=== PATIENT | male | born 1965 | race Caucasian/White ===

== ENCOUNTER 2021-03-09 06:10 | Outpatient (REF) | payer OTHER, SELFPAY ==
[2021-03-09 11:27] LABS: MANUAL DIFF FLAG NO
[2021-03-09 11:33] LABS: Appearance Urine HAZY; Color Urine YELLOW; Glucose Urine UA NEG (NEG); Leukocyte Esterase Urine NEG (NEG); Nitrite Urine NEG (NEG); Specific Gravity - Urine 1.025 (1.005-1.025); Urine Blood NEG (NEG); Urine Ketones NEG (NEG); Urine Protein NEG (NEG-TRACE)
[2021-03-09 11:42] LABS: Basophils Absolute Auto 0.1 X10*3/uL (0.0-0.2); Basophils Percent Auto 0.6 % (0-2); Eosinophils Absolute Auto 0.3 X10*3/uL (0.0-0.4); Hemoglobin 14.8 g/dl (14.0-18.0); Imm Gran Abs Auto 0.07 X10*3/uL (0.00-0.03); Imm Gran Pct Auto 0.8 % (0.0-0.4); Lymphocytes Absolute Auto 2.8 X10*3/uL (1.2-4.9); Lymphocytes Percent Auto 33.3 % (20-40); Mean Corpuscular HGB Conc 33.6 g/dl (31.0-36.0); Mean Corpuscular Hemoglobin 29.5 pg (27.0-33.0); Mean Corpuscular Volume 87.6 fL (80.0-98.0); Mean Platelet Volume 10.5 fL (9.4-12.4); Monocytes Absolute Auto 0.6 X10*3/uL (0.1-1.2); Monocytes Percent Auto 7.6 % (2-11); Neutrophils Absolute Auto 4.52 x10*3/uL (2.0-8.3); Neutrophils Percent Auto 54.7 % (45-73); Platelet Count 271 X10*3/uL (160-400); Red Blood Count 5.02 X10*6/uL (4.60-5.80); White Blood Count 8.3 X10*3/uL (4.8-10.8)
[2021-03-09 12:05] LABS: Mucus Urine 1+ /LPF; RBC Urine 0 /HPF (0); WBC Urine 0 /HPF (0-4)
[2021-03-09 12:22] LABS: Alanine Aminotransferase 36 U/L (0-40); Albumin Level 4.3 g/dL (3.5-5.0); Alkaline Phosphatase 81 U/L (39-117); Anion Gap 13 (12-20); Aspartate Amino Transferase 27 U/L (5-37); Blood Urea Nitrogen 18 mg/dL (9-16); Calcium 8.7 mg/dL (8.4-10.2); Carbon Dioxide 27 mmol/L (22-29); Chloride 103 mmol/L (96-108); Cholesterol 205 mg/dL; Estimated Glomerular Filt Rate 59; Glucose Fasting 138 mg/dL (60-99); HDL Cholesterol 45 mg/dL; LDL Cholesterol Calculated 131 mg/dl; Potassium 4.2 mmol/L (3.3-5.1); Sodium 139 mmol/L (135-145); Total Protein 6.9 g/dL (6.5-8.0); Triglycerides 148 mg/dL
[2021-03-09 12:31] LABS: PSA,Total (Free>4and<10) 3.14 ng/mL (0.00-4.00); Thyroid Stimulating Hormone 3.86 uIU/mL (0.32-4.0); Vitamin D 25-OH Total 17.3 ng/mL (>30)
[2021-03-10 04:39] LABS: SARS COV2 IgG Negative (Negative)
== END 2021-03-09 06:11 | disposition home or self-care (01) ==
LOC: HO.HMGCLDS 06:10
PROVIDERS: PCP Internal Medicine; Visit Provider Internal Medicine
DX: Z00.00 Encounter for general adult medical examination without abnormal findings (principal); Z12.5 Encounter for screening for malignant neoplasm of prostate; J30.2 Other seasonal allergic rhinitis; I10 Essential (primary) hypertension; E78.00 Pure hypercholesterolemia, unspecified
CPT/HCPCS: 36415; 80053; 80061; 81001; 82306; 84153; 84443; 85025; 86769

== ENCOUNTER 2022-02-24 06:19 | Outpatient (REF) | payer OTHER, SELFPAY ==
[2022-02-24 11:20] LABS: MANUAL DIFF FLAG NO
[2022-02-24 11:34] LABS: Appearance Urine Clear; Color Urine Yellow; Glucose Urine UA >=1000 mg/dL (Negative); Leukocyte Esterase Urine Negative (Negative); Nitrite Urine Negative (Negative); PH 5.5 (5.0-9.0); Specific Gravity - Urine >= 1.030 (1.005-1.025); UMIC TRIGGER UA YES; Urine Blood Negative (Negative); Urine Ketones Trace mg/dL (Negative); Urine Protein 100 (2+) mg/dL (Neg-Trace)
[2022-02-24 11:38] LABS: Basophils Absolute Auto 0.1 X10*3/uL (0.0-0.2); Basophils Percent Auto 0.9 % (0-2); Eosinophils Absolute Auto 0.1 X10*3/uL (0.0-0.4); Eosinophils Percent Auto 1.7 % (0-4); Hematocrit 45.6 % (42.0-52.0); Hemoglobin 15.4 g/dl (14.0-18.0); Imm Gran Abs Auto 0.08 X10*3/uL (0.00-0.03); Imm Gran Pct Auto 1.1 % (0.0-0.4); Lymphocytes Absolute Auto 2.7 X10*3/uL (1.2-4.9); Lymphocytes Percent Auto 38.8 % (20-40); Mean Corpuscular HGB Conc 33.8 g/dl (31.0-36.0); Mean Corpuscular Hemoglobin 29.8 pg (27.0-33.0); Mean Corpuscular Volume 88.2 fL (80.0-98.0); Mean Platelet Volume 10.9 fL (9.4-12.4); Monocytes Absolute Auto 0.6 X10*3/uL (0.1-1.2); Monocytes Percent Auto 8.3 % (2-11); Neutrophils Absolute Auto 3.5 x10*3/uL (2.0-8.3); Neutrophils Percent Auto 49.2 % (45-73); Platelet Count 270 X10*3/uL (160-400); Red Blood Count 5.17 X10*6/uL (4.60-5.80); Red Cell Distribution Width 12.6 % (11.0-16.0)
[2022-02-24 11:46] LABS: Bacteria Urine None Seen (None Seen); RBC Urine 0-2 /HPF (0-2); Squamous Epithelial Cell Urine 0-2 /HPF (0-2); WBC Urine 0-5 /HPF (0-5)
[2022-02-24 12:13] LABS: Alanine Aminotransferase 29 U/L (0-40); Albumin Level 4.4 g/dL (3.5-5.0); Alkaline Phosphatase 111 U/L (39-117); Anion Gap 15 (12-20); Aspartate Amino Transferase 17 U/L (5-37); Bilirubin Total 0.7 mg/dL (0.0-1.0); Blood Urea Nitrogen 19 mg/dL (9-16); Calcium 9.7 mg/dL (8.4-10.2); Carbon Dioxide 26 mmol/L (22-29); Chloride 103 mmol/L (96-108); Cholesterol 227 mg/dL; Estimated Glomerular Filt Rate 57; HDL Cholesterol 44 mg/dL; LDL Cholesterol Calculated 154 mg/dl; Potassium 4.1 mmol/L (3.3-5.1); Sodium 140 mmol/L (135-145); Total Protein 7.2 g/dL (6.5-8.0); Triglycerides 147 mg/dL
[2022-02-24 12:14] LABS: PSA,Total (Free>4and<10) 3.49 ng/mL (0.00-4.00); Thyroid Stimulating Hormone 3.01 uIU/mL (0.32-4.0); Vitamin D 25-OH Total 21.7 ng/mL (>30)
[2022-02-24 13:07] LABS: Glucose Fasting 380 mg/dL (60-99)
== END 2022-02-24 06:20 | disposition home or self-care (01) ==
LOC: HO.HMGCLDS 06:19
PROVIDERS: PCP Internal Medicine; Visit Provider Internal Medicine
DX: Z00.00 Encounter for general adult medical examination without abnormal findings (principal); Z12.5 Encounter for screening for malignant neoplasm of prostate; E78.00 Pure hypercholesterolemia, unspecified; E55.9 Vitamin D deficiency, unspecified; I10 Essential (primary) hypertension
CPT/HCPCS: 36415; 80053; 80061; 81001; 82306; 84153; 84443; 85025

== ENCOUNTER 2022-02-24 14:32 | Emergency (ER) | payer OTHER, SELFPAY ==
[2022-02-24 14:51] VITALS: BP 149/98; PULSE 89; RESP 18; TEMP 36.9; O2SAT 98; BMI 37.7
[2022-02-24 15:01] LABS: Glucose, Whole Blood 290 mg/dL (60-115)
[2022-02-24 15:55] LABS: MANUAL DIFF FLAG NO
[2022-02-24 15:57] LABS: Basophils Absolute Auto 0.1 X10*3/uL (0.0-0.2); Basophils Percent Auto 0.7 % (0-2); Eosinophils Absolute Auto 0.1 X10*3/uL (0.0-0.4); Eosinophils Percent Auto 1.3 % (0-4); Hematocrit 44.7 % (42.0-52.0); Hemoglobin 15.3 g/dl (14.0-18.0); Imm Gran Abs Auto 0.08 X10*3/uL (0.00-0.03); Lymphocytes Absolute Auto 2.6 X10*3/uL (1.2-4.9); Lymphocytes Percent Auto 31.2 % (20-40); Mean Corpuscular HGB Conc 34.2 g/dl (31.0-36.0); Mean Corpuscular Hemoglobin 29.8 pg (27.0-33.0); Mean Corpuscular Volume 87.1 fL (80.0-98.0); Mean Platelet Volume 10.1 fL (9.4-12.4); Monocytes Absolute Auto 0.6 X10*3/uL (0.1-1.2); Monocytes Percent Auto 7.1 % (2-11); Neutrophils Absolute Auto 4.9 x10*3/uL (2.0-8.3); Neutrophils Percent Auto 58.7 % (45-73); Platelet Count 268 X10*3/uL (160-400); Red Blood Count 5.13 X10*6/uL (4.60-5.80); Red Cell Distribution Width 12.6 % (11.0-16.0); White Blood Count 8.3 X10*3/uL (4.8-10.8)
[2022-02-24 16:16] LABS: Alanine Aminotransferase 32 U/L (0-40); Albumin Level 4.8 g/dL (3.5-5.0); Alkaline Phosphatase 112 U/L (39-117); Anion Gap 16 (12-20); Aspartate Amino Transferase 20 U/L (5-37); Bilirubin Direct 0.3 mg/dL (0.0-0.5); Blood Urea Nitrogen 19 mg/dL (9-16); Carbon Dioxide 28 mmol/L (22-29); Chloride 99 mmol/L (96-108); Creatinine Clr Calc Pharmacy 88.7; Estimated Glomerular Filt Rate 58; Glucose Random 348 mg/dL (60-115); Lipase 13 U/L (8-78); Sodium 138 mmol/L (135-145); Total Protein 7.8 g/dL (6.5-8.0)
== END 2022-02-24 18:47 | disposition left against medical advice (07) ==
PROVIDERS: Emergency Provider Emergency Medicine; PCP Internal Medicine
DX: R73.9 Hyperglycemia, unspecified (principal)
CPT/HCPCS: 36415; 80053; 82248; 82947; 83690; 85025; 99281; 99283

== ENCOUNTER 2022-04-05 06:07 | Outpatient (REF) | payer OTHER, SELFPAY ==
[2022-04-05 11:19] LABS: Appearance Urine Turbid; Color Urine Yellow; Glucose Urine UA Negative (Negative); Leukocyte Esterase Urine Negative (Negative); Nitrite Urine Negative (Negative); Specific Gravity - Urine 1.025 (1.005-1.025); Urine Blood Negative (Negative); Urine Ketones Trace mg/dL (Negative); Urine Protein Negative (Neg-Trace)
[2022-04-05 11:23] LABS: Bacteria Urine None Seen (None Seen); Hyaline Casts Urine 0-2 /LPF (0-2); RBC Urine 0-2 /HPF (0-2); Squamous Epithelial Cell Urine 0-2 /HPF (0-2); WBC Urine 0-5 /HPF (0-5)
[2022-04-05 11:30] LABS: Estimated Average Glucose 223 mg/dL; Hemoglobin A1c % 9.4 %
[2022-04-05 11:52] LABS: Vitamin D 25-OH Total 39.9 ng/mL (>30)
[2022-04-05 11:59] LABS: Alanine Aminotransferase 26 U/L (0-40); Albumin Level 4.5 g/dL (3.5-5.0); Alkaline Phosphatase 94 U/L (39-117); Anion Gap 16 (12-20); Aspartate Amino Transferase 22 U/L (5-37); Bilirubin Total 0.6 mg/dL (0.0-1.0); Blood Urea Nitrogen 22 mg/dL (9-16); Calcium 9.3 mg/dL (8.4-10.2); Carbon Dioxide 26 mmol/L (22-29); Chloride 102 mmol/L (96-108); Cholesterol 111 mg/dL; Estimated Glomerular Filt Rate 57; Glucose Fasting 143 mg/dL (60-99); HDL Cholesterol 37 mg/dL; LDL Cholesterol Calculated 54 mg/dl; Potassium 4.5 mmol/L (3.3-5.1); Sodium 139 mmol/L (135-145); Total Protein 7.3 g/dL (6.5-8.0); Triglycerides 100 mg/dL
[2022-04-05 12:18] LABS: Microalbum/Creatinine Ratio Ur 7.3 ug/mg cr
== END 2022-04-05 06:08 | disposition home or self-care (01) ==
LOC: HO.HMGCLDS 06:07
PROVIDERS: PCP Internal Medicine; Visit Provider Internal Medicine
DX: E11.65 Type 2 diabetes mellitus with hyperglycemia (principal); I10 Essential (primary) hypertension; E78.00 Pure hypercholesterolemia, unspecified; E55.9 Vitamin D deficiency, unspecified; J30.2 Other seasonal allergic rhinitis
CPT/HCPCS: 36415; 80053; 80061; 81001; 82043; 82306; 83036

== ENCOUNTER 2022-07-05 06:27 | Outpatient (REF) | payer OTHER, SELFPAY ==
[2022-07-05 11:33] LABS: Alanine Aminotransferase 24 U/L (0-40); Albumin Level 4.3 g/dL (3.5-5.0); Alkaline Phosphatase 76 U/L (39-117); Anion Gap 13 (12-20); Aspartate Amino Transferase 20 U/L (5-37); Bilirubin Total 0.7 mg/dL (0.0-1.0); Blood Urea Nitrogen 20 mg/dL (9-16); Carbon Dioxide 26 mmol/L (22-29); Chloride 106 mmol/L (96-108); Estimated Glomerular Filt Rate > 60; Glucose Random 120 mg/dL (60-115); Potassium 4.5 mmol/L (3.3-5.1); Sodium 140 mmol/L (135-145); Total Protein 6.8 g/dL (6.5-8.0)
[2022-07-05 11:47] LABS: Estimated Average Glucose 137 mg/dL; Hemoglobin A1c % 6.4 %
== END 2022-07-05 06:28 | disposition home or self-care (01) ==
LOC: HO.HMGCLDS 06:27
PROVIDERS: PCP Internal Medicine; Visit Provider Internal Medicine
DX: E11.65 Type 2 diabetes mellitus with hyperglycemia (principal); I10 Essential (primary) hypertension
CPT/HCPCS: 36415; 80053; 83036

== ENCOUNTER 2023-01-01 06:22 | Outpatient (REF) | payer OTHER, SELFPAY ==
[2023-01-01 11:37] LABS: Appearance Urine Clear; Color Urine Yellow; Glucose Urine UA Negative (Negative); Leukocyte Esterase Urine Trace (Negative); Nitrite Urine Negative (Negative); Specific Gravity - Urine >= 1.030 (1.005-1.025); UMIC TRIGGER UA YES; Urine Blood Negative (Negative); Urine Ketones Trace mg/dL (Negative); Urine Protein Trace mg/dL (Neg-Trace)
[2023-01-01 11:40] LABS: Bacteria Urine None Seen (None Seen); Hyaline Casts Urine 0-2 /LPF (0-2); RBC Urine 0-2 /HPF (0-2); Squamous Epithelial Cell Urine 0-2 /HPF (0-2); WBC Urine 0-5 /HPF (0-5)
[2023-01-01 12:51] LABS: PSA,Total (Free>4and<10) 5.36 ng/mL (0.00-4.00)
[2023-01-03 10:18] LABS: Free Prostate Spec Ag 0.7 ng/mL; Percent Free Prostate Spec Ag 14 % (calc) (>25)
== END 2023-01-01 06:23 | disposition home or self-care (01) ==
LOC: HO.HMGCLDS 06:22
PROVIDERS: PCP Internal Medicine; Visit Provider Internal Medicine
DX: Z12.5 Encounter for screening for malignant neoplasm of prostate (principal); R35.0 Frequency of micturition; R39.15 Urgency of urination
CPT/HCPCS: 36415; 81001; 84153; 84154; 87086

== ENCOUNTER 2023-01-09 07:01 | Outpatient (REF) | payer OTHER, SELFPAY ==
[2023-01-09 11:24] LABS: MANUAL DIFF FLAG NO
[2023-01-09 11:27] LABS: Basophils Absolute Auto 0.1 X10*3/uL (0.0-0.2); Basophils Percent Auto 0.7 % (0-2); Eosinophils Absolute Auto 0.3 X10*3/uL (0.0-0.4); Eosinophils Percent Auto 2.9 % (0-4); Hematocrit 40.8 % (42.0-52.0); Hemoglobin 13.8 g/dl (14.0-18.0); Imm Gran Abs Auto 0.08 X10*3/uL (0.00-0.03); Imm Gran Pct Auto 0.9 % (0.0-0.4); Lymphocytes Absolute Auto 3.3 X10*3/uL (1.2-4.9); Lymphocytes Percent Auto 36.3 % (20-40); Mean Corpuscular HGB Conc 33.8 g/dl (31.0-36.0); Mean Corpuscular Hemoglobin 29.7 pg (27.0-33.0); Mean Corpuscular Volume 87.9 fL (80.0-98.0); Mean Platelet Volume 10.2 fL (9.4-12.4); Monocytes Absolute Auto 0.8 X10*3/uL (0.1-1.2); Monocytes Percent Auto 8.3 % (2-11); Neutrophils Absolute Auto 4.6 x10*3/uL (2.0-8.3); Neutrophils Percent Auto 50.9 % (45-73); Platelet Count 265 X10*3/uL (160-400); Red Blood Count 4.64 X10*6/uL (4.60-5.80); Red Cell Distribution Width 12.6 % (11.0-16.0); White Blood Count 9.1 X10*3/uL (4.8-10.8)
[2023-01-09 11:41] LABS: Appearance Urine Clear; Color Urine Yellow; Glucose Urine UA Negative (Negative); Leukocyte Esterase Urine Negative (Negative); Nitrite Urine Negative (Negative); Specific Gravity - Urine 1.025 (1.005-1.025); Urine Blood Negative (Negative); Urine Ketones Trace mg/dL (Negative); Urine Protein Negative (Neg-Trace)
[2023-01-09 11:45] LABS: Bacteria Urine None Seen (None Seen); Hyaline Casts Urine 0-2 /LPF (0-2); RBC Urine 0-2 /HPF (0-2); Squamous Epithelial Cell Urine 0-2 /HPF (0-2); WBC Urine 0-5 /HPF (0-5)
[2023-01-09 12:32] LABS: Estimated Average Glucose 140 mg/dL; Hemoglobin A1c % 6.5 % (<6.0)
[2023-01-09 14:57] LABS: Alanine Aminotransferase 27 U/L (0-40); Albumin Level 4.1 g/dL (3.5-5.0); Alkaline Phosphatase 68 U/L (39-117); Anion Gap 13 (12-20); Aspartate Amino Transferase 22 U/L (5-37); Bilirubin Total 0.5 mg/dL (0.0-1.0); Blood Urea Nitrogen 21 mg/dL (9-16); Calcium 9.7 mg/dL (8.4-10.2); Carbon Dioxide 27 mmol/L (22-29); Chloride 104 mmol/L (96-108); Cholesterol 117 mg/dL (<200); Estimated Glomerular Filt Rate > 60; Glucose Fasting 124 mg/dL (60-99); HDL Cholesterol 41 mg/dL (>40); LDL Cholesterol Calculated 54 mg/dL (<100); Potassium 3.8 mmol/L (3.3-5.1); Sodium 140 mmol/L (135-145); Thyroid Stimulating Hormone 2.69 uIU/mL (0.32-4.0); Total Protein 6.9 g/dL (6.5-8.0); Triglycerides 111 mg/dL (<150)
== END 2023-01-09 07:02 | disposition home or self-care (01) ==
LOC: HO.HMGCLDS 07:01
PROVIDERS: PCP Internal Medicine; Visit Provider Internal Medicine
DX: E11.65 Type 2 diabetes mellitus with hyperglycemia (principal); I10 Essential (primary) hypertension; E78.00 Pure hypercholesterolemia, unspecified; E55.9 Vitamin D deficiency, unspecified; J30.2 Other seasonal allergic rhinitis
CPT/HCPCS: 36415; 80053; 80061; 81001; 82306; 83036; 84443; 85025

== ENCOUNTER 2023-03-06 06:33 | Outpatient (REF) | payer OTHER, SELFPAY ==
[2023-03-06 11:10] LABS: MANUAL DIFF FLAG NO
[2023-03-06 11:17] LABS: Basophils Absolute Auto 0.1 X10*3/uL (0.0-0.2); Basophils Percent Auto 0.6 % (0-2); Eosinophils Absolute Auto 0.3 X10*3/uL (0.0-0.4); Eosinophils Percent Auto 3.3 % (0-4); Hematocrit 43.2 % (42.0-52.0); Hemoglobin 14.5 g/dl (14.0-18.0); Imm Gran Abs Auto 0.07 X10*3/uL (0.00-0.03); Imm Gran Pct Auto 0.9 % (0.0-0.4); Lymphocytes Absolute Auto 2.8 X10*3/uL (1.2-4.9); Lymphocytes Percent Auto 35.6 % (20-40); Mean Corpuscular HGB Conc 33.6 g/dl (31.0-36.0); Mean Corpuscular Hemoglobin 29.8 pg (27.0-33.0); Mean Corpuscular Volume 88.9 fL (80.0-98.0); Mean Platelet Volume 10.5 fL (9.4-12.4); Monocytes Absolute Auto 0.6 X10*3/uL (0.1-1.2); Monocytes Percent Auto 8.1 % (2-11); Neutrophils Absolute Auto 4.1 x10*3/uL (2.0-8.3); Neutrophils Percent Auto 51.5 % (45-73); Platelet Count 257 X10*3/uL (160-400); Red Blood Count 4.86 X10*6/uL (4.60-5.80); Red Cell Distribution Width 12.9 % (11.0-16.0); White Blood Count 7.9 X10*3/uL (4.8-10.8)
[2023-03-06 11:46] LABS: PSA,Total (Free>4and<10) 3.92 ng/mL (0.00-4.00)
[2023-03-06 11:48] LABS: Appearance Urine Clear; Color Urine Yellow; Glucose Urine UA Negative (Negative); Leukocyte Esterase Urine Trace (Negative); Nitrite Urine Negative (Negative); UMIC TRIGGER UA YES; Urine Blood Negative (Negative); Urine Ketones Negative (Negative); Urine Protein Negative (Neg-Trace)
[2023-03-06 11:56] LABS: Bacteria Urine None Seen (None Seen); Hyaline Casts Urine 0-2 /LPF (0-2); RBC Urine 0-2 /HPF (0-2); Squamous Epithelial Cell Urine 0-2 /HPF (0-2); WBC Urine 0-5 /HPF (0-5)
[2023-03-06 12:37] LABS: Creatinine Urine 248.92 mg/dL; Microalbum/Creatinine Ratio Ur 6.8 ug/mg cr (<30)
== END 2023-03-06 06:34 | disposition home or self-care (01) ==
LOC: HO.HMGCLDS 06:33
PROVIDERS: PCP Internal Medicine; Visit Provider Internal Medicine
DX: Z12.5 Encounter for screening for malignant neoplasm of prostate (principal); I10 Essential (primary) hypertension; N40.0 Benign prostatic hyperplasia without lower urinary tract symptoms; R97.20 Elevated prostate specific antigen [PSA]
CPT/HCPCS: 36415; 81001; 82043; 82570; 84153; 85025

== ENCOUNTER 2023-09-12 06:32 | Outpatient (REF) | payer OTHER, SELFPAY ==
[2023-09-12 10:22] LABS: MANUAL DIFF FLAG NO
[2023-09-12 10:29] LABS: Appearance Urine Clear; Color Urine Yellow; Glucose Urine UA Negative (Negative); Leukocyte Esterase Urine Trace (Negative); Nitrite Urine Negative (Negative); UMIC TRIGGER UA YES; Urine Blood Negative (Negative); Urine Ketones Trace mg/dL (Negative); Urine Protein Trace mg/dL (Neg-Trace)
[2023-09-12 10:33] LABS: Bacteria Urine None Seen (None Seen); Hyaline Casts Urine 0-2 /LPF (0-2); RBC Urine 0-2 /HPF (0-2); Squamous Epithelial Cell Urine 0-2 /HPF (0-2); WBC Urine 0-5 /HPF (0-5)
[2023-09-12 10:48] LABS: Basophils Absolute Auto 0.1 X10*3/uL (0.0-0.2); Basophils Percent Auto 0.8 % (0-2); Eosinophils Absolute Auto 0.2 X10*3/uL (0.0-0.4); Eosinophils Percent Auto 2.7 % (0-4); Hematocrit 41.7 % (42.0-52.0); Hemoglobin 14.2 g/dl (14.0-18.0); Imm Gran Abs Auto 0.09 X10*3/uL (0.00-0.03); Imm Gran Pct Auto 1.1 % (0.0-0.4); Lymphocytes Percent Auto 35.1 % (20-40); Mean Corpuscular HGB Conc 34.1 g/dl (31.0-36.0); Mean Corpuscular Hemoglobin 29.6 pg (27.0-33.0); Mean Corpuscular Volume 87.1 fL (80.0-98.0); Mean Platelet Volume 10.3 fL (9.4-12.4); Monocytes Absolute Auto 0.7 X10*3/uL (0.1-1.2); Monocytes Percent Auto 7.7 % (2-11); Neutrophils Absolute Auto 4.4 x10*3/uL (2.0-8.3); Neutrophils Percent Auto 52.6 % (45-73); Platelet Count 264 X10*3/uL (160-400); Red Blood Count 4.79 X10*6/uL (4.60-5.80); Red Cell Distribution Width 13.1 % (11.0-16.0); White Blood Count 8.4 X10*3/uL (4.8-10.8)
[2023-09-12 10:57] LABS: Estimated Average Glucose 203 mg/dL; Hemoglobin A1c % 8.7 % (<6.0)
[2023-09-12 11:17] LABS: Alanine Aminotransferase 43 U/L (0-40); Albumin Level 4.4 g/dL (3.5-5.0); Alkaline Phosphatase 78 U/L (39-117); Anion Gap 18 (12-20); Aspartate Amino Transferase 26 U/L (5-37); Blood Urea Nitrogen 21 mg/dL (9-16); Calcium 9.4 mg/dL (8.4-10.2); Carbon Dioxide 23 mmol/L (22-29); Chloride 102 mmol/L (96-108); Cholesterol 119 mg/dL (<200); Estimated Glomerular Filt Rate > 60; Glucose Fasting 198 mg/dL (60-99); HDL Cholesterol 38 mg/dL (>40); LDL Cholesterol Calculated 51 mg/dL (<100); Potassium 3.8 mmol/L (3.3-5.1); Sodium 139 mmol/L (135-145); Thyroid Stimulating Hormone 4.41 uIU/mL (0.32-4.0); Total Protein 7.4 g/dL (6.5-8.0); Triglycerides 151 mg/dL (<150); Vitamin D 25-OH Total 32.5 ng/mL (>30)
[2023-09-12 11:24] LABS: Microalbum/Creatinine Ratio Ur 23.1 ug/mg cr (<30)
[2023-09-13 13:33] LABS: Free Prostate Spec Ag 0.8 ng/mL; Percent Free Prostate Spec Ag 19 % (calc) (>25); Prostate Specific Ag Total 4.3 ng/mL (< OR = 4.0)
== END 2023-09-12 06:33 | disposition home or self-care (01) ==
LOC: HO.HMGCLDS 06:32
PROVIDERS: PCP Internal Medicine; Visit Provider Internal Medicine
DX: Z12.5 Encounter for screening for malignant neoplasm of prostate (principal); E11.65 Type 2 diabetes mellitus with hyperglycemia; E78.00 Pure hypercholesterolemia, unspecified; I10 Essential (primary) hypertension; N40.0 Benign prostatic hyperplasia without lower urinary tract symptoms; E55.9 Vitamin D deficiency, unspecified; J30.2 Other seasonal allergic rhinitis
CPT/HCPCS: 36415; 80053; 80061; 81001; 82043; 82306; 82570; 83036; 84153; 84154; 84443; 85025

== ENCOUNTER 2023-10-31 09:31 | Outpatient (AMB) | payer OTHER, SELFPAY ==
[2023-10-31 09:31] VITALS: BP 136/82; PULSE 106; O2SAT 96; BMI 40.0
--- NOTE | 2023-10-31 09:31 | A.OFFVIS_ITS ---
Vital Signs 10/31/23 09:31 Height 6 ft Weight 295 lb BMI 40.0 BP 136/82 Blood Pressure Location Rt brachial Position Sitting Pulse 106 H Pulse Source Doppler Pulse Oximetry (%) 96 Oxygen Delivery Method Room Air Intake Visit Reasons: Obstructive sleep apnea Allergies No Known Allergies Allergy (Verified 02/24/22 14:51) HPI HPI Obstructive sleep apnea: Details: 58-year-old gentleman, occasional cigar smoker, with underlying hypertension referred for evaluation of snoring and episodes of apnea that were observed by his . Patient denies morning headaches. He states that he sleeps about 7-9 hours per night. It is easy for him to take a nap during the day. He does have environmental allergies for which he use as needed Zyrtec. He denies family history of lung disease. ON LICENSE OF [facility] Social History (Updated 10/31/23 @ 09:37 by Christiane Rae FORMERLY [facility], [facility]) Patient Tobacco Use Status: Never used Tobacco Review of Systems Const Denies daytime sleepiness, Denies excessive sweating, Denies fatigue, Denies fever(s), Denies lethargy, Denies malaise, Denies night sweats, Denies snoring and Denies weight loss Eyes Denies blurry vision and Denies itchy eyes ENT Denies nasal congestion, Denies post nasal drip, Denies sinus pain, Denies sinus pressure and Denies other ( Thrush) Card Denies chest pain, Denies pedal edema, Denies dyspnea, Denies orthopnea and Denies paroxysmal nocturnal dyspnea Resp Denies cough, Denies hemoptysis, Denies excessive phlegm production, Denies dyspnea, Denies snoring and Denies wheezing GI Denies abdominal pain and Denies heartburn Musc Denies myalgias, Denies arthralgias and Denies joint swelling Skin/Breast Denies rash Neuro Denies memory loss and Denies seizure-like activity Psych Denies abnormal sleep pattern, Denies anxiety and Denies memory loss Endo Denies excessive sweating, Denies fatigue and Denies heat intolerance Erwin/Lymph Denies easy bruising Aller/Immun Denies itchy eyes, Denies seasonal rhinorrhea and Denies wheezing Physical Exam Vital Signs: Last Vital Signs Pulse 106 H 10/31/23 09:31 BP 136/82 10/31/23 09:31 Pulse Ox 96 10/31/23 09:31 Oxygen Delivery Method Room Air 10/31/23 09:31 BMI result Body Mass Index 40.0 Const General: no acute distress and alert Nutritional Appearance: not obese Orientation/consciousness: Other orientation findings ( oriented) HEENT Head: Yes atraumatic Eyes General: appearance normal, both eyes and all related structures Sclerae: sclerae normal EOM: EOMs intact bilaterally Neck Neck: Yes supple Lymphatic: no lymphadenopathy noted Resp Effort & Inspection: normal respiratory effort and no use of accessory muscles Auscultation: clear to auscultation bilaterally Cardio Rate: regular rate Rhythm: regular rhythm Heart sounds: no gallops, no murmurs and no rubs Skin General skin exam: other ( warm) Extrem General: No clubbing, No cyanosis and No edema Assessment & Plan Assessment & Plan (1) ANDRÉS (obstructive sleep apnea): Code(s): G47.33 - Obstructive sleep apnea (adult) (pediatric) Category: Medical Plan: Snoring, unrestful sleep, [place] Sleepiness Scale score of 14. Will obtain home sleep study. (2) Environmental allergies: Code(s): Z91.09 - Other allergy status, other than to drugs and biological substances Category: Medical Plan: Well controlled on as needed Zyrtec. Continue current regimen. Orders: Orders RT home sleep study Today G47.33 - Obstructive sleep apnea (adult) (pediatric) Coding Level of Care Code New Pt Level 4 (72847) Diagnoses ANDRÉS (obstructive sleep apnea) G47.33 Environmental allergies Z91.09
== END 2023-10-31 09:55 | disposition home or self-care (01) ==
PROVIDERS: PCP Internal Medicine; Visit Provider Internal Medicine Pulmonary Disease
DX: G47.33 Obstructive sleep apnea (adult) (pediatric) (principal); Z91.09 Other allergy status, other than to drugs and biological substances
CPT/HCPCS: 99204

== ENCOUNTER → 2023-10-31 09:31 | Outpatient (BNVA) | payer OTHER, SELFPAY | PROVIDERS: PCP Internal Medicine; Visit Provider Internal Medicine Pulmonary Disease ==

== ENCOUNTER → 2024-01-10 13:34 | Outpatient (REF) | payer OTHER, SELFPAY | LOC: HO.SL 13:34 | PROVIDERS: PCP Internal Medicine; Visit Provider Internal Medicine Pulmonary Disease | DX: G47.33 Obstructive sleep apnea (adult) (pediatric) (principal) | CPT/HCPCS: 95806 ==

== ENCOUNTER → 2024-01-10 13:52 | Outpatient (BNV) | payer OTHER, SELFPAY | PROVIDERS: PCP Internal Medicine; Visit Provider Internal Medicine | DX: G47.33 Obstructive sleep apnea (adult) (pediatric) (principal) | CPT/HCPCS: 95806 ==

== ENCOUNTER 2024-01-22 14:36 | Outpatient (AMB) | payer OTHER, SELFPAY ==
[2024-01-22 14:38] VITALS: BP 136/78; PULSE 97; O2SAT 96; BMI 39.9
--- NOTE | 2024-01-22 14:38 | A.OFFVIS_ITS ---
Vital Signs 01/22/24 14:38 Height 6 ft Weight 294 lb 5.074 oz BMI 39.9 BP 136/78 Blood Pressure Location Lt brachial Position Sitting Pulse 97 Pulse Source Doppler Pulse Oximetry (%) 96 Oxygen Delivery Method Room Air Intake Visit Reasons: Obstructive sleep apnea Allergies No Known Allergies Allergy (Verified 02/24/22 14:51) HPI HPI Obstructive sleep apnea: Details: 58-year-old gentleman, occasional cigar smoker, with underlying hypertension referred for evaluation of snoring and episodes of apnea that were observed by his . Patient denies morning headaches. He states that he sleeps about 7-9 hours per night. It is easy for him to take a nap during the day. He does have environmental allergies for which he use as needed Zyrtec. He denies family history of lung disease. After the last office visit patient had home sleep study that showed underlying severe sleep apnea with AHI of 56. Patient is interested in CPAP therapy. [facility] Social History (Updated 10/31/23 @ 09:37 by Christiane Rae [facility]) Patient Tobacco Use Status: Never used Tobacco Review of Systems Const Denies daytime sleepiness, Denies excessive sweating, Denies fatigue, Denies fever(s), Denies lethargy, Denies malaise, Denies night sweats, Denies snoring, Denies weight loss and Reports other (Unrestful sleep) Eyes Denies blurry vision and Denies itchy eyes ENT Denies nasal congestion, Denies post nasal drip, Denies sinus pain, Denies sinus pressure and Denies other ( Thrush) Card Denies chest pain, Denies pedal edema, Denies dyspnea, Denies orthopnea and Denies paroxysmal nocturnal dyspnea Resp Denies cough, Denies hemoptysis, Denies excessive phlegm production, Denies dyspnea, Denies snoring and Denies wheezing GI Denies abdominal pain and Denies heartburn Musc Denies myalgias, Denies arthralgias and Denies joint swelling Skin/Breast Denies rash Neuro Denies memory loss and Denies seizure-like activity Psych Denies abnormal sleep pattern, Denies anxiety and Denies memory loss Endo Denies excessive sweating, Denies fatigue and Denies heat intolerance Erwin/Lymph Denies easy bruising Aller/Immun Denies itchy eyes, Denies seasonal rhinorrhea and Denies wheezing Physical Exam Vital Signs: Last Vital Signs Pulse 97 01/22/24 14:38 BP 136/78 01/22/24 14:38 Pulse Ox 96 01/22/24 14:38 Oxygen Delivery Method Room Air 01/22/24 14:38 BMI result Body Mass Index 39.9 Const General: no acute distress and alert Nutritional Appearance: obese Orientation/consciousness: Other orientation findings ( oriented) HEENT Head: Yes atraumatic Eyes General: appearance normal, both eyes and all related structures Sclerae: sclerae normal EOM: EOMs intact bilaterally Neck Neck: Yes supple Lymphatic: no lymphadenopathy noted Resp Effort & Inspection: normal respiratory effort and no use of accessory muscles Auscultation: clear to auscultation bilaterally Cardio Rate: regular rate Rhythm: regular rhythm Heart sounds: no gallops, no murmurs and no rubs Skin General skin exam: other ( warm) Extrem General: No clubbing, No cyanosis and No edema Assessment & Plan Assessment & Plan (1) ANDRÉS (obstructive sleep apnea): Code(s): G47.33 - Obstructive sleep apnea (adult) (pediatric) Category: Medical Plan: Results of sleep study reviewed, underlying severe obstructive sleep apnea. Will start APAP of 6-16 cm of water. (2) Environmental allergies: Code(s): Z91.09 - Other allergy status, other than to drugs and biological substances Category: Medical Plan: Continues to be reasonably well controlled on Zyrtec. Continue current regimen. Coding Level of Care Code Est Pt Level 4 (15348) Diagnoses ANDRÉS (obstructive sleep apnea) G47.33 Environmental allergies Z91.09
== END 2024-01-22 15:01 | disposition home or self-care (01) ==
PROVIDERS: PCP Internal Medicine; Visit Provider Internal Medicine Pulmonary Disease
DX: G47.33 Obstructive sleep apnea (adult) (pediatric) (principal); Z91.09 Other allergy status, other than to drugs and biological substances
CPT/HCPCS: 99214

== ENCOUNTER → 2024-01-22 14:36 | Outpatient (BNVA) | payer OTHER, SELFPAY | PROVIDERS: PCP Internal Medicine; Visit Provider Internal Medicine Pulmonary Disease ==

== ENCOUNTER 2024-03-20 06:18 | Outpatient (REF) | payer OTHER, SELFPAY ==
[2024-03-20 10:47] LABS: Alanine Aminotransferase 45 U/L (0-40); Albumin Level 4.3 g/dL (3.5-5.0); Alkaline Phosphatase 77 U/L (39-117); Anion Gap 13 (12-20); Aspartate Amino Transferase 41 U/L (5-37); Bilirubin Total 0.7 mg/dL (0.0-1.0); Blood Urea Nitrogen 19 mg/dL (9-16); Calcium 8.9 mg/dL (8.4-10.2); Carbon Dioxide 27 mmol/L (22-29); Chloride 98 mmol/L (96-108); Cholesterol 103 mg/dL (<200); Estimated Glomerular Filt Rate 55; Glucose Fasting 297 mg/dL (60-99); HDL Cholesterol 41 mg/dL (>40); LDL Cholesterol Calculated 40 mg/dL (<100); Potassium 4.3 mmol/L (3.3-5.1); Sodium 134 mmol/L (135-145); Total Protein 7.1 g/dL (6.5-8.0); Triglycerides 112 mg/dL (<150)
[2024-03-20 10:48] LABS: Creatinine Urine 152.87 mg/dL; Microalbum/Creatinine Ratio Ur 27.4 ug/mg cr (<30)
[2024-03-20 11:00] LABS: Thyroid Stimulating Hormone 3.59 uIU/mL (0.32-4.0)
[2024-03-20 14:16] LABS: Estimated Average Glucose 252 mg/dL; Hemoglobin A1C 325.6303 umol/L; Hemoglobin A1c % 10.4 % (<6.0); Total Hemoglobin (HGBA1C) 3595.8113 umol/L
== END 2024-03-20 06:19 | disposition home or self-care (01) ==
LOC: HO.HMGCLDS 06:18
PROVIDERS: PCP Internal Medicine; Visit Provider Internal Medicine
DX: Z00.00 Encounter for general adult medical examination without abnormal findings (principal); E11.65 Type 2 diabetes mellitus with hyperglycemia; I10 Essential (primary) hypertension; E78.00 Pure hypercholesterolemia, unspecified; E55.9 Vitamin D deficiency, unspecified; R97.20 Elevated prostate specific antigen [PSA]; E66.01 Morbid (severe) obesity due to excess calories
CPT/HCPCS: 36415; 80053; 80061; 82043; 82570; 83036; 84443

== ENCOUNTER 2024-04-18 08:44 | Day surgery (SDC) | payer OTHER, SELFPAY ==
[2024-04-16 10:58] VITALS: BMI 39.5
--- NOTE | 2024-04-17 09:24 | P.CONAN_ITS ---
Documented by User: Margy Moreira NP 04/17/24 09:27 HPI - Anesthesia Eval Consult details Narrative: 58yo M for Colonoscopy PMFSH Active Problems Active Problems: All Active Problems Environmental allergies (Acute) ANDRÉS (obstructive sleep apnea) (Acute) Past Medical History Medical History (Updated 04/16/24 @ 10:59 by Pinky Doran RN) Elevated cholesterol HTN (hypertension) BPH (benign prostatic hyperplasia) Diabetes Sleep apnea Surgical History Surgical History (Updated 04/16/24 @ 10:59 by Pinky Doran RN) Hx of hand surgery H/O colonoscopy Social History Social History (Updated 04/16/24 @ 10:59 by Pinky Doran RN) Household Members: Spouse Are you a primary healthcare business analyst to a significant other at home: No Do you presently have visiting nurse or other home services: No Patient Tobacco Use Status: Never used Tobacco Use of substances other than those prescribed or required for medical reasons: No Have you been hit, kicked, punched, or otherwise hurt by someone within the past year? If so, by whom?: No Are you DNR?: No Advance Directives: No Advance Directives Information Provided: Yes Recently lost weight without trying: No Nutrition Risks: No Nutritional Risk Poor oral hygiene: No Meds Allergies Allergy/AdvReac Type Severity Reaction Status Date / Time No Known Allergies Allergy Verified 04/18/24 10:11 Home Medications ?Medication ?Instructions ?Recorded ?Confirmed ?Last Taken ?Type cholecalciferol (vitamin D3) 50 50 mcg PO DAILY 10/31/23 04/16/24 04/17/24 History mcg (2,000 unit) capsule hydrochlorothiazide 25 mg tablet 25 mg PO QAM 10/31/23 04/16/24 04/17/24 History losartan 50 mg tablet 50 mg PO DAILY 10/31/23 04/16/24 04/17/24 History metformin 1,000 mg tablet 1,000 mg PO BID 10/31/23 04/16/24 04/17/24 History rosuvastatin 20 mg tablet 20 mg PO DAILY 10/31/23 04/16/24 04/17/24 History tamsulosin 0.4 mg capsule 0.4 mg PO BEDTIME 10/31/23 04/16/24 04/17/24 History Exam Height,Weight and Vital Signs: Height 6 ft Weight 131.995 kg Pertinent Lab Results Pertinent Lab Results: Laboratory Tests 09/12/23 03/20/24 06:40 06:30 WBC 8.4 Hgb 14.2 Hct 41.7 L Plt Count 264 Sodium 134 L Potassium 4.3 Chloride 98 Carbon Dioxide 27 BUN 19 H Creatinine 1.34 Assessment and Plan Assessment Anesthesia Assessment: Chart Reviewed Documented by User: Maricruz Keith MD 04/18/24 10:32 PMF Past Medical History Medical History (Updated 04/16/24 @ 10:59 by Pinky Doran RN) Elevated cholesterol HTN (hypertension) BPH (benign prostatic hyperplasia) Diabetes Sleep apnea Family History Family history of problems with anesthesia: No Surgical History Surgical History (Updated 04/16/24 @ 10:59 by Pinky Doran RN) Hx of hand surgery H/O colonoscopy History of Problems with Anesthesia: No Social History Social History (Updated 04/16/24 @ 10:59 by Pinky Doran RN) Household Members: Spouse Are you a primary healthcare business analyst to a significant other at home: No Do you presently have visiting nurse or other home services: No Patient Tobacco Use Status: Never used Tobacco Use of substances other than those prescribed or required for medical reasons: No Have you been hit, kicked, punched, or otherwise hurt by someone within the past year? If so, by whom?: No Are you DNR?: No Advance Directives: No Advance Directives Information Provided: Yes Recently lost weight without trying: No Nutrition Risks: No Nutritional Risk Poor oral hygiene: No Meds Allergies Allergy/AdvReac Type Severity Reaction Status Date / Time No Known Allergies Allergy Verified 04/18/24 10:11 Home Medications ?Medication ?Instructions ?Recorded ?Confirmed ?Last Taken ?Type cholecalciferol (vitamin D3) 50 50 mcg PO DAILY 10/31/23 04/16/24 04/17/24 History mcg (2,000 unit) capsule hydrochlorothiazide 25 mg tablet 25 mg PO QAM 10/31/23 04/16/2424 History losartan 50 mg tablet 50 mg PO DAILY 10/31/23 04/16/24 04/17/24 History metformin 1,000 mg tablet 1,000 mg PO BID 10/31/23 04/16/24 04/17/24 History rosuvastatin 20 mg tablet 20 mg PO DAILY 10/31/23 04/16/24 04/17/24 History tamsulosin 0.4 mg capsule 0.4 mg PO BEDTIME 10/31/23 04/16/24 04/17/24 History Exam Airway Mallampati Class: III TM Dist: >3cm Neck ROM: Full Assessment and Plan Assessment Anesthesia Assessment: Anesthesia Plan Discussed Final Anesthetic Review Family History of Problems with Anesthesia: No History of Problems with Anesthesia: No NPO: Yes ASA Class: III Final Preanesthetic Review: No Changes in Pt Med Stat, Meds/Allgs Chart Reviewed, Consent Obtained/Reviewed, Anes Risks/Benef Reviewed and DNR Form (If Appl.) Patient Risk: Intermediate Procedure Risk: Low Anesthetic Plan Anesthetic Plan: TIVA Disposition: Standard PACU
--- OUTSIDE RECORDS SUMMARY | 2024-04-18 08:48 | XMS_ITS ---
Author Organization [facility] Address [address] [place] [phone] Care Team Providers Care Sole Rounder Name Role Phone Mauricio Brewer DO Primary Care Provider Unavail able René Chandler Jr Unavailable REASON FOR VISIT screening Encounters Encounter Location Date Provider Diagnosis [facility] [address] [place] [id number] 04/18/2024 René Chandler Jr PLAN OF TREATMENT Next Appt Details Provider Name:René dixon Jr, 04/18/2024 10:50:00 AM, [address] [place] [address], [phone],
--- OUTSIDE RECORDS SUMMARY | 2024-04-18 08:49 | XMS_ITS | Continuity of Care Document ---
Author Organization [facility] Address [address] [place] [phone]- Care Team Providers Care Tennis Centre Manager Name Role Phone Mauricio Brewer DO Primary Care Physician Encounter 04/07/24 - 04/08/[address] [address]- Attending Physician: Not on Staff, Attending MD Referring Physician: Not on Staff, Referring MD Encounter Type: SMRI Allergies, Adverse Reactions, Alerts No Known Allergies Medications Vicodin 500 mg-5 mg oral tablet 1 tablet, By Mouth, Every 4 hours, PRN Pain, # 12 tablet, 0 Refills, Maintenance, 11/20/12 2:48:49 PM EDT, Tablet Start Date: 11/20/12 Status: Ordered Quantity: 12.0 Unit: tablet Repeat number: 1 Patient Care team information Care Team Personnel Name: Naila Gomez RN Position: [facility] RN Member Role: Primary Care Nurse Name: Susanne Allen RN Position: [facility] Office Staff Member Role: Primary Care Nurse Name: Mauricio Brewer DO Position: Reference Physician Member Role: PCP Address: [address] [place] [address] Mauricio Brewer [place], [place] [address] Telecom: Care Team Related Persons Name: DAMASO PACE Insurance Providers Guarantor name: NA Health Plan Information #: 1 Payer: [employer] HMO POS Member Number: NA Policy Number: NA Group Number: NA
--- OUTSIDE RECORDS SUMMARY | 2024-04-18 08:49 | XMS_ITS | Patient Health Record ---
Author Organization [facility] Address [address] [place] [phone] Care Team Providers Care Fish Processing Supervisor Name Role Phone Mauricio Brewer DO Primary Care Provider Unavail able René Chandler Jr Unavailable ALLERGIES No Known Allergies REASON FOR REFERRAL Reason F/U colonoscopy Referring Provider First Name Mauricio Referring Provider Last Name Daniella Referring Provider Speciality Internal M edicine Referred Provider René Chandler Jr General Notes Zeinab Shay 024 03:57:59 PM EDT > no referral required for [facility] per website Referral Priority Routine Referral Appointment Date 01/21/2024 MEDICATIONS Medication SIG (Take, Route, Frequency, Duration) Notes Start Date End Date Status Losartan Potassium 50 MG TAKE 1 TABLET B Y MOUTH EVERY DAY FOR 90 DAYS Oral for 90 Active hydroCHLOROthiazide 25 MG TAKE 1 TABLET BY MOUTH EVERY DAY IN THE MORNING FOR 90 DAYS Oral for 90 Active Rosuvastatin Calcium 20 MG TAKE 1 TABLET BY MOUTH EVERY DAY FOR 90 DAYS Oral for 90 Active ZyrTEC Allergy 10 MG 1 tablet Orally Onc e a day for 30 day(s) Active Vitamin D3 50 MCG (1999 UT) TAKE 1 CAPSU LE BY MOUTH EVERY DAY FOR 90 DAYS Oral for 90 Active metFORMIN HCl 1000 MG TAKE 1 TABLET BY M OUTH TWICE A DAY WITH A MEAL FOR 90 DAYS Oral for 90 Active IMMUNIZATIONS Vaccine Route Administration Date Status Comme nts Influenza Unknown 02/13/2018 Administered Influenza Unknown 02/20/2024 Refused SOCIAL HISTORY Sex Assigned At : Social History Observation Description Sex Assigned At Unknown PROBLEMS Problem Type ICD Code Onset Dates Problem Status W/U Status Risk SNOMED Code Notes Problem Colon cancer screening (Z12.11) Active confirmed 938884498 Problem Personal history of colonic polyps (Z86.010) Active confirmed 949905957 Problem Encounter for other preprocedural examination (Z01.818) Active confirmed 51527815 Problem superintendent container terminal (current) use of oral hypoglycemic drugs (Z79.84) Active confirmed 406034474633946 Problem detention current use of diuretic (Z79.899) Active confirmed 02440868543983056 VITAL SIGNS Temperature 98.0 degrees Fahrenheit 02/20/2024 Blood pressure diastolic 74 mm Hg 02/20/2024 Height 72 in 02/20/2024 Blood pressure systolic 128 mm Hg 02/20/2024 Weight 291 lb 6 oz lbs 02/20/2024 BMI 39.51 kg/m2 02/20/2024 Encounters Encounter Location Date Provider Diagnosis [facility] [address] [place] [id number] 03/28/2024 René Chandler Jr [facility] Out[facility] [address] [place] [id number] 04/18/2024 René Chandler Jr [facility] [address] [place] [phone] 01/21/2024 René Chandler Jr [facility] [address] [place] [phone] 02/20/2024 René Chandler Jr Colon cancer screening Z12.11 ; Encounter for other preprocedural examination Z01.818 ; superintendent container terminal current use of diuretic Z79.899 and superintendent container terminal (current) use of oral hypoglycemic drugs Z79.84 [facility] [address] [place] [phone] 03/19/2024 René Chandler Jr ASSESSMENTS Encounter Date Diagnosis Assessment Notes Treatment Notes Treatment Clinical Notes 02/20/2024 Colon cancer screening (ICD-10 - Z12.11) 02/20/2024 Encounter for other preprocedural examination (ICD-10 - Z01.818) 02/20/2024 superintendent container terminal current us e of diuretic (ICD-10 - Z79.899) 02/20/2024 superintendent container terminal (current) use of oral hypoglycemic drugs (ICD-10 - Z79.84) PLAN OF TREATMENT Future Test Test Name Order Date COLONOSCOPY 12/06/2012 COLONOSCOPY 06/12/2018 COLONOSCOPY 02/20/2024 Next Appt Details Provider Name:René fernandezvaleri Reese, 04/18/2024 10:50:00 AM, [address] [place] [address] , [place], [place], [phone], Insurance Providers Payer Name Payer Address Payer Phone Subscriber Number Group Number Insured Name Patient Relationship to Insured Coverage Start Date Coverage End Date [facility] [address] [place] [address] [id number] DORYS PACE Self - patient is the insured MEDICAL (GENERAL) HISTORY Medical History History ICD Code Diabetes mellitus type 2 Seasonal allergic rhinitis BPH, biopsy scheduled ANDRÉS/CPAP Hyperlipidemia Hypertension Vitamin D deficiency Colonoscopy 12/23, five-year followup for history of polyps. Surgical History Surgery Date(Month/Year) finger surgery
--- OUTSIDE RECORDS SUMMARY | 2024-04-18 08:49 | XMS_ITS ---
Author Organization Mauricio Brewer DO, FAC Address [address] [place] [phone] Care Team Providers Care On Awake Counselor Name Role Phone Mauricio Brewer Primary Care Provider ALLERGIES No Known Allergies REASON FOR VISIT 6 month f/u, Follow up Type 2 diabetes mellitus with hyperglycemia, without long-term current use of insulin MEDICATIONS Medication SIG (Take, Route, Frequency, Duration) Notes Start Date End Date Status hydroCHLOROthiazide 25 MG 1 tablet in th e morning Orally Once a day 09/19/2023 Active Cetirizine HCl 10 MG 1 tablet Orally Onc e a day Active Vitamin D (Cholecalciferol) 50 MCG (1999 UT) 1 capsule Orally Once a day 03/03/2022 Active glipiZIDE 10 MG 1 tablet 30 minutes before breakfast Orally Once a day for 30 days 03/25/2024 Active metFORMIN HCl 1000 MG 1 tablet with a me al Orally Twice a day Active Losartan Potassium 50 MG 1 tablet Orally Once a day Active Rosuvastatin Calcium 20 MG 1 tablet Oral ly Once a day for 90 days Active Rosuvastatin Calcium 20 MG 1 tablet Oral ly Once a day for 30 day(s) 03/25/2024 Active SOCIAL HISTORY Tobacco Use: Social History Observation Description Date Details (start date - stop date) Never Smoker NA - NA Sex Assigned At : Social History Observation Description Sex Assigned At Unknown Tobacco Use/Smoking Question Answer Notes Patient is a nonsmoker Additional Findings: Tobacco Non-User Cu rrent non-smoker, currently using no form of tobacco Alcohol Screen Question Answer Notes Did you have a drink contain ing alcohol in the past year? Yes How often did you have a dri nk containing alcohol in the past year? Monthly or less (1 point) How many drinks did you have on a typical day when you were drinking in the past year? 1 or 2 drinks (0 point) How often did you have 6 or more drinks on one occasion in the past year? Never (0 point) Points 1 Interpretation Negative VITAL SIGNS BMI 39.06 kg/m2 03/25/2024 Blood pressure systolic 122 mm Hg 03/25/20 24 Blood pressure diastolic 80 mm Hg 024 Height 72.0 in 03/25/2024 Weight 288 lbs 03/25/2024 Encounters Encounter Location Date Provider Diagnosis Mauricio Alden Brewer DO, [address] [phone] 03/25/2024 Mauricio Brewer Type 2 diabetes kj itus with hyperglycemia, without long-term current use of insulin E11.65 ; Essential hypertension I10 ; Hypercholesterolemia E78.00 ; Vitamin D deficiency E55.9 ; Elevated PSA R97.20 ; Seasonal allergies J30.2 and Morbid obesity E66.01 ASSESSMENTS Encounter Date Diagnosis Assessment Notes Treatment Notes Treatment Clinical Notes 03/25/2024 Type 2 diabetes kj itus with hyperglycemia, without long-term current use of insulin (ICD-10 - E11.65) Start glipizide. Blood sugars need to come down in preparation for prostatectomy. Patient/Caregiver verbalizes understanding of medications side effects, interactions and warnings. 03/25/2024 Essential hypertensi on (ICD-10 - I10) 03/25/2024 Hypercholesterolemia (ICD-10 - E78.00) 03/25/2024 Vitamin D deficiency (ICD-10 - E55.9) 03/25/2024 Elevated PSA (ICD-10 - R97.20) Pete has biopsy proven prostate cancer. Prostatectomy is being planned by Urology. 03/25/2024 Seasonal allergies (ICD-10 - J30.2) 03/25/2024 Morbid obesity (ICD- 10 - E66.01) Now on CPAP for ANDRÉS. Doing very well. Has lost weight. PLAN OF TREATMENT Medication Medication Name Sig Start Date Stop Date Notes hydroCHLOROthiazide 25 MG 1 tablet in th e morning Orally Once a day 09/19/2023 Cetirizine HCl 10 MG 1 tablet Orally Onc e a day Vitamin D (Cholecalciferol) 50 MCG (2000 UT) 1 capsule Orally Once a day 03/03/2022 glipiZIDE 10 MG 1 tablet 30 minutes before breakfast Orally Once a day for 30 days 03/25/2024 metFORMIN HCl 1000 MG 1 tablet with a me al Orally Twice a day Losartan Potassium 50 MG 1 tablet Orally Once a day Rosuvastatin Calcium 20 MG 1 tablet Oral ly Once a day for 30 day(s) 03/25/2024 Treatment Notes Assessment Notes Type 2 diabetes mellitus wit h hyperglycemia, without long-term current use of insulin Start glipizide. Blood sugars need to come down in preparation for prostatectomy. Patient/Caregiver verbalizes understanding of medications side effects, interactions and warnings. Elevated PSA Pete has biopsy prov en prostate cancer. Prostatectomy is being planned by Urology. Morbid obesity Now on CPAP for ANDRÉS. Doing very well. Has lost weight. Pending Test Test Name Order Date PROFILE, FASTING 03/25/2024 Hemoglobin A1c 03/25/2024 Next Appt Details Follow Up: 3 Months, Reason: follow up visit,review lab work Provider Name:Mauricio schafer, 06/25/2024 03:45:00 PM, [address] [place] [address], [phone], Progress Notes * Examination Category Sub-Category Detail Notes General Examination GENERAL APPEARANCE: in no ac armando distress, well developed, well nourished HEAD: normocephalic, atrau matic HEART: no murmurs, regular rate and rhythm, S1, S2 normal LUNGS: clear to auscultatio n bilaterally ABDOMEN: normal, bowel sounds present, soft, nontender, nondistended SKIN: warm and dry EXTREMITIES: no edema PSYCH: alert, oriented, cog nitive function intact
--- OUTSIDE RECORDS SUMMARY | 2024-04-18 08:49 | XMS_ITS ---
Author Organization [facility] Address [address] [place] [phone] Care Team Providers Care Package Reinspector Name Role Phone Mauricio Brewer DO Primary Care Provider Unavail able René Chandler Jr Unavailable [phone] REASON FOR VISIT r/s procedure Encounters Encounter Location Date Provider Diagnosis [facility] [address] [place] [phone] 03/19/2024 René Chandler Jr PLAN OF TREATMENT Next Appt Details Provider Name:René dixon Jr, 04/18/2024 10:50:00 AM, [address] [place] [address] , [place], [place], [phone],
--- OUTSIDE RECORDS SUMMARY | 2024-04-18 08:49 | XMS_ITS ---
Author Organization [facility] Address [address] [place] [phone] Care Team Providers Care Accountant Cost Name Role Phone Mauricio Brewer DO Primary Care Provider Unavail able René Chandler Jr Unavailable REASON FOR VISIT screening Encounters Encounter Location Date Provider Diagnosis [facility] [address] [place] [phone] 03/28/2024 René Chandler Jr PLAN OF TREATMENT Next Appt Details Provider Name:René dixon Jr, 04/18/2024 10:50:00 AM, [address] [place] [address], [phone],
--- OUTSIDE RECORDS SUMMARY | 2024-04-18 08:50 | XMS_ITS ---
Author Organization Mauricio Brewer DO, [facility] Address [address] [place] [phone] Care Team Providers Care Biophysics Teacher Name Role Phone DaniellaMauricio carvajal Primary Care Provider REASON FOR VISIT New Refill Request MEDICATIONS Medication SIG (Take, Route, Frequency, Duration) Notes Start Date End Date Status hydroCHLOROthiazide 25 MG 1 tablet in th e morning Orally Once a day for 90 days 09/19/2023 Active Vitamin D (Cholecalciferol) 50 MCG (2000 UT) 1 capsule Orally Once a day for 90 days 03/03/2022 Active Encounters Encounter Location Date Provider Diagnosis Mauricio Brewer DO, [address] [phone] 12/18/2023 Mauricio Brewer Vitamin D deficiency E55.9 and Essential hypertension I10 ASSESSMENTS Encounter Date Diagnosis Assessment Notes Treatment Notes Treatment Clinical Notes 12/18/2023 Vitamin D deficiency (ICD-10 - E55.9) 12/18/2023 Essential hypertension (ICD-10 - I10) PLAN OF TREATMENT Medication Medication Name Sig Start Date Stop Date Notes hydroCHLOROthiazide 25 MG 1 tablet in th e morning Orally Once a day for 90 days 09/19/2023 Vitamin D (Cholecalciferol) 50 MCG (2000 UT) 1 capsule Orally Once a day for 90 days 03/03/2022 Next Appt Details Provider Name:Mauricio schafer, 06/25/2024 03:45:00 PM, [address] [place] [address], [phone],
--- OUTSIDE RECORDS SUMMARY | 2024-04-18 08:50 | XMS_ITS ---
Author Organization Mauricio Brewer DO, FACP Address [address] [place] [phone] Care Team Providers Care Casing Running Machine Tender Name Role Phone Mauricio Brewer Primary Care Provider REASON FOR VISIT RE:New Refill Request Encounters Encounter Location Date Provider Diagnosis Mauricio Brewer DO, FACP [address] [place] [phone] 12/19/2023 Mauricio Brewer PLAN OF TREATMENT Next Appt Details Provider Name:Mauricio schafer, 06/25/2024 03:45:00 PM, [address] [place] [address], [phone],
--- OUTSIDE RECORDS SUMMARY | 2024-04-18 08:50 | XMS_ITS | Patient Health Record ---
Author Organization Mauricio Brewer DO, FACP Address [address] [place], [place] [phone] Care Team Providers Care Mica Washer Gluer Name Role Phone Mauricio Brewer Primary Care Provider [phone] ALLERGIES No Known Allergies RESULTS Component Value Reference Range Notes Complete Blood Count Auto Di ff Reviewed date:09/12/2023 11:03:56 AM Interpretation:Abnormal Performing Lab:[facility], [address] [place] [phone] Notes/Report: White Blood Count 8.4 4.8-10.8 X10*3/uL Red Blood Count 4.79 4.60-5.80 X10*6/uL Hemoglobin 14.2 14.0-18.0 g/dl Hematocrit 41.7 42.0-52.0 % Mean Corpuscular Volume 87.1 80.0-98.0 fL Mean Corpuscular Hemoglobin 29.6 27.0-33.0 pg Mean Corpuscular HGB Conc 34.1 31.0-36.0 g/dl Red Cell Distribution Width 13.1 11.0-16.0 % Platelet Count 264 160-400 X10*3/uL Mean Platelet Volume 10.3 9.4-12.4 fL Neutrophils Percent Auto 52.6 45-73 % Imm Gran Pct Auto 1.1 0.0-0.4 % Lymphocytes Percent Auto 35.1 20-40 % Monocytes Percent Auto 7.7 2-11 % Eosinophils Percent Auto 2.7 0-4 % Basophils Percent Auto 0.8 0-2 % NRBC Pct Auto 0.0 0.0-0.2 /100WBC Neutrophils Absolute Auto 4.4 2.0-8.3 x10*3/u L Imm Gran Abs Auto 0.09 0.00-0.03 X10*3/uL Lymphocytes Absolute Auto 3.0 1.2-4.9 X10*3/u L Monocytes Absolute Auto 0.7 0.1-1.2 X10*3/uL Eosinophils Absolute Auto 0.2 0.0-0.4 X10*3/u L Basophils Absolute Auto 0.1 0.0-0.2 X10*3/uL NRBC Abs Auto 0.000 0.0-0.012 X10*3/uL Urinalysis and Microscopic Reviewed date:09/12/2023 11:03:56 AM Interpretation:Abnormal Performing Lab:[facility], [address] [place] [phone] Notes/Report: Color Urine Yellow Appearance Urine Clear PH 6.0 5.0-9.0 Glucose Urine UA Negative Negative mg/dL Urine Blood Negative Negative Specific [place] - Urine 1.020 1.005-1.025 Urine Protein Trace Neg-Trace mg/dL Urine Ketones Trace Negative mg/dL Nitrite Urine Negative Negative Leukocyte Esterase Urine Trace Negative RBC Urine 0-2 0-2 /HPF WBC Urine 0-5 0-5 /HPF Squamous Epithelial Cell Urine 0-2 0-2 /HPF Bacteria Urine None Seen None Seen Hyaline Casts Urine 0-2 0-2 /LPF Comprehensive Crescent. Panel Fa st Reviewed date:09/12/2023 11:38:37 AM Interpretation:Abnormal Performing Lab:[facility], [address] [place] [phone] Notes/Report: Sodium 139 135-145 mmol/L Potassium 3.8 3.3-5.1 mmol/L Chloride 102 96-108 mmol/L Carbon Dioxide 23 22-29 mmol/L Anion Gap 18 12-20 Blood Urea Nitrogen 21 9-16 mg/dL Creatinine 1.05 0.5-1.4 mg/dL Estimated Glomerular Filt Rate > 60 NOTE: For -Syrian individuals, multiply the result by 1.210. Chronic Kidney Disease: Estimated GFR < 60 mL/min/1.73m2 Severe Kidney Disease: Estimated GFR < 15 mL/min/1.73m2 Glucose Fasting 198 60-99 mg/dL A fasting glucose of 126 mg/dl or greater on more than one occasion is considered diagnostic of diabetes. Calcium 9.4 8.4-10.2 mg/dL Bilirubin Total 1.0 0.0-1.0 mg/dL Aspartate Amino Transferase 26 5-37 U/L Alanine Aminotransferase 43 0-40 U/L Total Protein 7.4 6.5-8.0 g/dL Albumin Level 4.4 3.5-5.0 g/dL Alkaline Phosphatase 78 39-117 U/L Lipid Panel Reviewed date:09/12/2023 11:38:37 AM Interpretation:Abnormal Performing Lab:[address] [phone] Notes/Report: Triglycerides 151 <150 mg/dL Desirable Triglyceride: less than 150 mg/dL Borderline High Triglyceride 150-199 mg/dL High Triglyceride: 200-499 mg/dL Very High Triglyceride: greater than or equal to 5OO mg/dL Cholesterol 119 <200 mg/dL Desirable Cholesterol: less than 200 mg/dL Borderline High Cholesterol: 200-239 mg/dL High Cholesterol: greater than 239 mg/dL LDL Cholesterol Calculated 51 <100 mg/dL Desirable LDL: less than 100 mg/dL Near Optimal/Above Optimal LDL: 110-129 mg/dL Borderline High LDL: 130-159 mg/dL High LDL: 160-189 mg/dL Very High LDL: greater than or equal to 190 mg/dL HDL Cholesterol 38 >40 mg/dL Desirable HDL: greater than 40 mg/dL Note: This HDL assay may give artificially low results in patients with liver disease. PSA Free and Total Reviewed date:09/13/2023 01:40:03 PM Interpretation:Abnormal Performing Lab:[address] [phone] Notes/Report: Prostate Specific Ag Total 4.3 < OR = 4.0 ng/ mL Percent Free Prostate Spec Ag 19 >25 % (calc ) PSA(ng/mL) Free PSA(%) Estimated(x) Probability of Cancer(as%) 0-2.5 (*) Approx. 1 2.6-4.0(1) 0-27(2) 24(3) 4.1-10(4) 0-10 56 11-15 28 16-20 20 21-25 16 >or =26 8 >10(+) N/A >50 References:(1)Donavan et al.:Urology 60: 469-474 (2002) (2)Donavan et al.:J.Urol 168: 922-925 (2001) Free PSA(%) Sensitivity(%) Specificity(%) < or = 25 85 19 < or = 30 93 9 (3)Prakashona et al.:BELLA 277: 2359-0670 (1996) (4)Catalona et al.:BELLA 279: 6220-3972 (1997) (x)These estimates vary with age, ethnicity, family history and YASMIN results. (*)The diagnostic usefulness of % Free PSA has not been established in patients with total PSA below 2.6 ng/mL (+)In men with PSA above 10 ng/mL, prostate cancer risk is determined by total PSA alone. The Total PSA value from this assay system is standardized against the equimolar PSA standard. The test result will be approximately 20% higher when compared to the WHO-standardized Total PSA (Siemens assay). Comparison of serial PSA results should be interpreted with this fact in mind. PSA was performed using the Colby Harsha Immunoassay method. Values obtained from different assay methods cannot be used interchangeably. PSA levels, regardless of value, should not be interpreted as absolute evidence of the presence or absence of disease. THIS TEST WAS PERFORMED AT: [facility] [address] [phone] MARY LAYNE MD Free Prostate Spec Ag 0.8 PSA,Total (Free>4and<10) Reviewed date:09/12/2023 11:39:18 AM Interpretation:Abnormal Performing Lab:[address] [phone] Notes/Report: PSA,Total (Free>4and<10) 4.60 0.00-4.00 ng/mL PSA methodology: [employer] Al[employer] i Chemiluminescent Microparticle Immunoassay (CMIA) Vitamin D 25-OH Total Reviewed date:09/12/2023 11:38:37 AM Interpretation:Normal Performing Lab:[address] [phone] Notes/Report: Vitamin D 25-OH Total 32.5 >30 ng/mL Health Based Reference Values* < 20 ng/mL Deficient 20-30 ng/mL Insufficient > 30 ng/mL Sufficient *Kate DENNISON. N Engl J Med. 2007;357:266-280 Care must be taken in interpreting Vitamin D results from different laboratories and methodologies. Published data demonstrated that results from patients undergoing hemodialysis may show a negative bias when tested with various automated 25-OH vitamin D assays when compared to LC-MS/MS. When testing samples from patients whose predominant form of Vitamin D is Vitamin D2, such as patients receiving Vitamin D2 supplementation, results that are subtherapeutic should be confirmed with another method such as LC-MS/MS. Thyroid Stimulating Hormone Reviewed date:09/12/2023 11:38:37 AM Interpretation:Abnormal Performing Lab:[facility], [address] [place] [phone] Notes/Report: Thyroid Stimulating Hormone 4.41 0.32-4.0 uIU/ mL Note: A sustained TSH level above 2.5 uIU/mL may warrant further investigation. TSH 3rd Generation ([facility]) Microalbumin, Random Reviewed date:09/12/2023 11:38:37 AM Interpretation:Normal Performing Lab:[facility], [address] [place] [phone] Notes/Report: Creatinine Urine 263.56 Microalbumin Urine 61.0 Microalbum/Creatinine Ratio Ur 23.1 <30 ug/mg cr Albumin/Creatinine Ratio Reference Ranges: Normal: < 30 ug/mg creatinine Microalbuminuria: 30 - 300 ug/mg creatinine Clinical Albuminuria: > 300 ug/mg creatinine Hemoglobin A1c Reviewed date:09/12/2023 11:04:09 AM Interpretation:Abnormal Performing Lab:[facility], [address] [place] [phone] Notes/Report: Hemoglobin A1c % 8.7 <6.0 % Hemoglobin A1C Reference Range Adults: 4.8 - 6.0 % Non diabetic: < 6.0 % Goal: < 7.0 % Additional Action Suggested: > 8.0 % Note: Hemoglobin A1c results are invalid for patients with abnormal amounts of HbF. Blood transfusions may impact the HbA1c concentration in the patient sample. Estimated Average Glucose 203 eAG = Estimated average glucose which is %A1C expressed as average glucose, using the formula of the J9C-Dkfxgiw Average Glucose study (ADAG), Diabetes Care, Vol.31,#8, Dec. 2007 Comprehensive Crescent. Panel Fa st Reviewed date:03/20/2024 11:54:21 AM Interpretation:Abnormal Performing Lab:[facility], [address] [place] [phone] Notes/Report: Sodium 134 135-145 mmol/L Potassium 4.3 3.3-5.1 mmol/L Chloride 98 96-108 mmol/L Carbon Dioxide 27 22-29 mmol/L Anion Gap 13 12-20 Blood Urea Nitrogen 19 9-16 mg/dL Creatinine 1.34 0.5-1.4 mg/dL Estimated Glomerular Filt Rate 55 Chronic Kidney Disease: Estimated GFR < 60 mL/min/1.73m2 Severe Kidney Disease: Estimated GFR < 15 mL/min/1.73m2 Glucose Fasting 297 60-99 mg/dL A fasting glucose of 126 mg/dl or greater on more than one occasion is considered diagnostic of diabetes. Calcium 8.9 8.4-10.2 mg/dL Bilirubin Total 0.7 0.0-1.0 mg/dL Aspartate Amino Transferase 41 5-37 U/L Alanine Aminotransferase 45 0-40 U/L Total Protein 7.1 6.5-8.0 g/dL Albumin Level 4.3 3.5-5.0 g/dL Alkaline Phosphatase 77 39-117 U/L Lipid Panel Reviewed date:03/20/2024 11:54:21 AM Interpretation:Normal Performing Lab:[facility], [address] [place] [phone] Notes/Report: Triglycerides 112 <150 mg/dL Desirable Triglyceride: less than 150 mg/dL Borderline High Triglyceride 150-199 mg/dL High Triglyceride: 200-499 mg/dL Very High Triglyceride: greater than or equal to 5OO mg/dL Cholesterol 103 <200 mg/dL Desirable Cholesterol: less than 200 mg/dL Borderline High Cholesterol: 200-239 mg/dL High Cholesterol: greater than 239 mg/dL LDL Cholesterol Calculated 40 <100 mg/dL Desirable LDL: less than 100 mg/dL Near Optimal/Above Optimal LDL: 110-129 mg/dL Borderline High LDL: 130-159 mg/dL High LDL: 160-189 mg/dL Very High LDL: greater than or equal to 190 mg/dL HDL Cholesterol 41 >40 mg/dL Desirable HDL: greater than 40 mg/dL Note: This HDL assay may give artificially low results in patients with liver disease. Thyroid Stimulating Hormone Reviewed date:03/20/2024 11:54:21 AM Interpretation:Normal Performing Lab:[facility], [address] [place] [phone] Notes/Report: Thyroid Stimulating Hormone 3.59 0.32-4.0 uIU/ mL Note: A sustained TSH level above 2.5 uIU/mL may warrant further investigation. TSH 3rd Generation ([facility]) Microalbumin, Random Reviewed date:03/20/2024 11:54:21 AM Interpretation:Normal Performing Lab:[facility], [address] [place] [phone] Notes/Report: Creatinine Urine 152.87 Microalbumin Urine 42.0 Microalbum/Creatinine Ratio Ur 27.4 <30 ug/mg cr Albumin/Creatinine Ratio Reference Ranges: Normal: < 30 ug/mg creatinine Microalbuminuria: 30 - 300 ug/mg creatinine Clinical Albuminuria: > 300 ug/mg creatinine Hemoglobin A1c Reviewed date:03/20/2024 04:13:41 PM Interpretation:Abnormal Performing Lab:[facility], [address] [place] [phone] Notes/Report: Hemoglobin A1c % 10.4 <6.0 % Hemoglobin A1C Reference Range Adults: 4.8 - 6.0 % Non diabetic: < 6.0 % Goal: < 7.0 % Additional Action Suggested: > 8.0 % Note: Hemoglobin A1c results are invalid for patients with abnormal amounts of HbF. Blood transfusions may impact the HbA1c concentration in the patient sample. Estimated Average Glucose 252 eAG = Estimated average glucose which is %A1C expressed as average glucose, using the formula of the W1A-Svwnqti Average Glucose study (ADAG), Diabetes Care, Vol.31,#8, Dec. 2007 REASON FOR REFERRAL Reason F/U colonoscopy Diagnosis 1 Encounter for genera l adult medical examination without abnormal findings (Z00.00) Referral Organization Mauricio Maravilla O, FACP Referring Provider First Name Mauricio Referring Provider Last Name Daniella Referring Provider Speciality Internal M edicine Referred Provider René Chandler Referred Provider Specialty Gastroentero logy General Notes Edelmira Moscoso 024 10:32:49 AM EDT > referral faxed; patient aware., Edelmira Moscoso 09/19/2023 10:46:05 AM EDT > referral re-faxed. Referral Priority Routine Referral Appointment Date 01/21/2024 Reason Elevated PSA Diagnosis 1 Elevated PSA (R97.20 ) Referral Organization Mauricio Goldsmith FACP Referring Provider First Name Mauricio Referring Provider Last Name Daniella Referring Provider Speciality Internal edicine Referred Provider Kwesi Johnson Referred Provider Specialty Urology General Notes Edelmira Moscoso 024 10:41:36 AM EDT > referral faxed; specialist's office will call patient to schedule appointment; patient aware.Edith Donna 11/06/2023 02:48:12 PM EDT > Referral was refaxed with labs per patients request. Referral Priority Routine Reason ANDRÉS Diagnosis 1 Morbid obesity (E66. 01) Referral Organization Mauricio Goldsmith FACP Referring Provider First Name Mauricio Referring Provider Salas Name Daniella Ref[facility] Referred Provider Brigitte Otero Referred Provider Specialty Pulmonary Di seases General Notes Edelmira Moscoso 024 10:40:38 AM EDT > referral faxed; specialist's office will call patient to schedule appointment; patient aware. Referral Priority Routine MEDICATIONS Medication SIG (Take, Route, Frequency, Duration) Notes Start Date End Date Status hydroCHLOROthiazide 25 MG 1 tablet in th e morning Orally Once a day 09/19/2023 Active Losartan Potassium 50 MG 1 tablet Orally Once a day Active Rosuvastatin Calcium 20 MG 1 tablet Oral ly Once a day for 90 days Active Rosuvastatin Calcium 20 MG 1 tablet Oral ly Once a day for 30 day(s) 03/25/2024 Active Cetirizine HCl 10 MG 1 tablet Orally Onc e a day Active Vitamin D (Cholecalciferol) 50 MCG (2000 UT) 1 capsule Orally Once a day 03/03/2022 Active glipiZIDE 10 MG 1 tablet 30 minutes before breakfast Orally Once a day for 30 days 03/25/2024 Active metFORMIN HCl 1000 MG 1 tablet with a me al Orally Twice a day for 90 days Active IMMUNIZATIONS Vaccine Route Administration Date Status Comme nts TDaP IM Intramuscular 09/16/2012 Administered Influenza Unknown 03/21/2013 Administered Influenza Quad IM Intramuscular 03/05/2015 Administered Influenza Quad IM Intramuscular 01/14/2016 Administered Influenza Quad IM Intramuscular 04/18/2017 Administered Influenza Quad IM Intramuscular 01/25/2018 Administered SOCIAL HISTORY Tobacco Use: Social History Observation [...] Never (0 point) Points 1 Interpretation Negative PROBLEMS Problem Type ICD Code Onset Dates Problem Status W/U Status Risk SNOMED Code Notes Problem Vitamin D deficiency (E55.9) Active confirmed 93990217 Problem Essential hypertensi on (I10) Active confirmed 87295397 Problem Seasonal allergies (J30.2) Active confirmed 534590193 Problem Type 2 diabetes mellitus with hyperglycemia, without long-term current use of insulin (E11.65) Active confirmed 42682918 Problem Benign prostatic hyperplasia without lower urinary tract symptoms (N40.0) Active confirmed 987519084 Problem Hypercholesterolemia (E78.00) Active confirmed 14392533 Problem Elevated PSA (R97.20) Active confirmed 897089749 Problem Morbid obesity (E66.01) Active confirmed 630166899 VITAL SIGNS Blood pressure diastolic 80 mm Hg 03/25/2024 Height 72.0 in 03/25/2024 Blood pressure systolic 122 mm Hg 03/25/2024 Weight 288 lbs 03/25/2024 BMI 39.06 kg/m2 03/25/2024 Encounters Encounter Location Date Provider Diagnosis Mauricio Brewer DO [facility] [address] [place], [place] [phone] 09/19/2023 Mauricio Brewer Encounter for genera l adult medical examination without abnormal findings Z00.00 ; Type 2 diabetes mellitus with hyperglycemia, without long-term current use of insulin E11.65 ; Essential hypertension I10 ; Hypercholesterolemia E78.00 ; Vitamin D deficiency E55.9 ; Seasonal allergies J30.2 ; Elevated PSA R97.20 and Morbid obesity E66.01 Mauricio Brewer DO, [facility] [address] [place], [place] [phone] 03/25/2024 Mauricio Brewer Type 2 diabetes kj itus with hyperglycemia, without long-term current use of insulin E11.65 ; Essential hypertension I10 ; Hypercholesterolemia E78.00 ; Vitamin D deficiency E55.9 ; Elevated PSA R97.20 ; Seasonal allergies J30.2 and Morbid obesity E66.01 Mauricio Brewer DO, [facility] [address] [place], [place] [phone] 11/06/2023 Mauricio Brewer DO, [facility] [address], [place] [phone] 09/07/2023 Mauricio Brewer DO, [facility] [address] [place], [place] [phone] 06/10/2023 Mauricio Brewer DO, [facility] [address] [place], [place] [phone] 08/27/2023 Mauricio Brewer DO, [facility] [address] [place], [place] [id number] 09/16/2023 Mauricio Brewer DO, [facility] [address] [place], [place] [phone] 09/20/2023 Mauricio Brewer DO, [facility] [address] [place], [place] [phone] 10/14/2023 Mauricio Brewer DO, [facility] [address] [place], [place] [phone] 12/18/2023 Mauricio Brewer Vitamin D deficiency E55.9 and Essential hypertension I10 Mauricio Brewer DO, [facility] [address] [place], [place] [phone] 12/19/2023 Mauricio Brewer ASSESSMENTS Encounter Date Diagnosis Assessment Notes Treatment Notes Treatment Clinical Notes 09/19/2023 Encounter for genera l adult medical examination without abnormal findings (ICD-10 - Z00.00) Long discussion regarding the need for weight loss. Bill will join [employer] 09/19/2023 Type 2 diabetes kj itus with hyperglycemia, without long-term current use of insulin (ICD-10 - E11.65) Long discussion regarding the need for weight loss. Bill will join [employer] 03/25/2024 Essential hypertensi on (ICD-10 - I10) 03/25/2024 Type 2 diabetes kj itus with hyperglycemia, without long-term current use of insulin (ICD-10 - E11.65) Start glipizide. Blood sugars need to come down in preparation for prostatectomy. Patient/Caregiver verbalizes understanding of medications side effects, interactions and warnings. 12/18/2023 Vitamin D deficiency (ICD-10 - E55.9) 09/19/2023 Essential hypertensi on (ICD-10 - I10) Check BP in the office in about 4 weeks 03/25/2024 Hypercholesterolemia (ICD-10 - E78.00) 12/18/2023 Essential hypertensi on (ICD-10 - I10) 09/19/2023 Hypercholesterolemia (ICD-10 - E78.00) 03/25/2024 Vitamin D deficiency (ICD-10 - E55.9) 09/19/2023 Vitamin D deficiency (ICD-10 - E55.9) 03/25/2024 Elevated PSA (ICD-10 - R97.20) Pete has biopsy proven prostate cancer. Prostatectomy is being planned by Urology. 09/19/2023 Seasonal allergies (ICD-10 - J30.2) 03/25/2024 Seasonal allergies (ICD-10 - J30.2) 09/19/2023 Elevated PSA (ICD-10 - R97.20) 03/25/2024 Morbid obesity (ICD- 10 - E66.01) Now on CPAP for ANDRÉS. Doing very well. Has lost weight. 09/19/2023 Morbid obesity (ICD- 10 - E66.01) Long discussion regarding the need for weight loss. Bill will join [employer] PLAN OF TREATMENT Pending Test Test Name Order Date PROFILE, FASTING 03/25/2024 Microalbumin, Random 07/07/2022 Hemoglobin A1c 03/25/2024 Next Appt Details Provider Name:Mauricio schafer, 06/25/2024 03:45:00 PM, [address] [place] [address], [phone], Insurance Providers Payer Name Payer Address Payer Phone Subscriber Number Group Number Insured Name Patient Relationship to Insured Coverage Start Date Coverage End Date [facility] [address] [place], [place] [id number] Pete Vela Self - patient is the insured MEDICAL (GENERAL) HISTORY Medical History History ICD Code hypertension seasonal allergies tubular adenoma varicella zoster, left side of face, age 15 Type 2 diabetes mellitus wit h hyperglycemia, without long-term current use of insulin E11.65 Vitamin D deficiency E55.9 Hypercholesterolemia E78.00 Urinary urgency R39.15 Increased urinary frequency R35.0 Surgical History Surgery Date(Month/Year) cyst removal, sebaceous, back
[2024-04-18 10:12] VITALS: BMI 38.1
--- NOTE | 2024-04-18 10:26 | P.HPSUR_ITS ---
Pre-Procedural Eval Section A - 24 Hr Update-Section A only Date of Service: 04/18/24 Section B - Complete if H&P > 30 days Chief Complaint: Encounter for screening for malignant neoplasm of Details of Present Illness: see H&P no changes Relevant Family History (Specify if Yes): No Relevant Social History: None Present Medications: see Short Stay Collaborative assessment Medical History: No relevant PMH History of Previous Operations: No relevant previous surgery Allergies: Allergies Allergy/AdvReac Type Severity Reaction Status Date / Time No Known Allergies Allergy Verified 04/18/24 10:11 Review of Systems Sugical H&P ROS: Negative: Constitution, Cardiovascular, Respiratory, Neurological, Psychiatric, Hem-Onc, Allergic/Immunologic, Gastrointestinal, Genitourinary, Musculoskeletal, Integumentary, Endocrine and Eyes/Ears/No se/Throat Exam Surgical H&P Exam: Normal: HEENT, Normal: Heart, Normal: Lungs, Normal: Extremities, Normal: Abdomen, Normal: Skin and Normal: Neurological Plan Diagnosis/Plan: Unchanged I have reviewed the history and physical and performed a pertinent physical examination on my patient. No changes have occurred unless specified. Time Spent With Patient Time: Total time managing care of this patient today ____ minutes.
[2024-04-18 10:33] VITALS: BP 134/86; PULSE 72; RESP 14; TEMP 36.6; O2SAT 99
[2024-04-18 11:12] VITALS: BP 124/78; PULSE 72; RESP 16; TEMP 36.1; O2SAT 97
[2024-04-18 11:27] VITALS: BP 141/96; PULSE 75; RESP 16; TEMP 36.2; O2SAT 98
--- NOTE | 2024-04-18 11:50 | OP_ITS ---
DATE OF SERVICE: 04/18/2024 SURGEON: René Chandler MD INDICATIONS: Colon cancer screening and prior history of adenomatous colon polyps. PREOPERATIVE DIAGNOSIS: POSTOPERATIVE DIAGNOSIS: PROCEDURE PERFORMED: Colonoscopy to the cecum with biopsy. ESTIMATED BLOOD LOSS: COMPLICATIONS: ANESTHESIA: Monitored anesthesia care. ASSISTANTS: SPECIMENS: DESCRIPTION OF PROCEDURE: A history and physical was performed. The risks and benefits of the procedure were explained to this patient, and informed consent was obtained. The patient was placed in the left lateral decubitus position. A digital rectal exam was performed and was found to be normal. The Olympus pediatric video colonoscope was introduced into the rectum and advanced to the cecum. The cecum was identified by transillumination, palpation, and identification of ileocecal valve. Examination was performed, the scope was removed. He tolerated the procedure well, and was returned to the recovery area in stable condition. FINDINGS: The terminal ileum was not examined. There was some liquid stool in the cecum. This was washed and suctioned and limited the examination slightly. A single polyp measuring less than 5 mm was identified in the rectum. This was removed with a biopsy forceps. No other polyps were identified. Retroflexed examination showed some small internal hemorrhoids. IMPRESSION: Colon polyp. RECOMMENDATION: Follow up the biopsy results MD WOODY Heard/GABY / [id number]
== END 2024-04-18 12:40 | disposition home or self-care (01) ==
PROVIDERS: PCP Internal Medicine; Visit Provider Internal Medicine Gastroenterology
PROC: 0DJD8ZZ Inspection of Lower Intestinal Tract, Via Natural or Artificial Opening Endoscopic (ICD-10-PCS; CPT 45378; principal; 2024-04-18 10:50)
DX: Z12.11 Encounter for screening for malignant neoplasm of colon (principal); Z86.0101 Personal history of adenomatous and serrated colon polyps; K62.1 Rectal polyp; K64.8 Other hemorrhoids; N40.0 Benign prostatic hyperplasia without lower urinary tract symptoms; Z80.42 Family history of malignant neoplasm of prostate; I10 Essential (primary) hypertension; E11.9 Type 2 diabetes mellitus without complications; J30.2 Other seasonal allergic rhinitis; E78.5 Hyperlipidemia, unspecified; E55.9 Vitamin D deficiency, unspecified; G47.33 Obstructive sleep apnea (adult) (pediatric); Z79.84 Long term (current) use of oral hypoglycemic drugs; Z79.899 Other long term (current) drug therapy; Z99.89 Dependence on other enabling machines and devices
CPT/HCPCS: 45380; 88305; J2003; J2250; J2704

== ENCOUNTER 2024-06-17 14:51 | Outpatient (AMB) | payer OTHER, SELFPAY ==
[2024-06-17 14:52] VITALS: BP 128/77; PULSE 87; O2SAT 98; BMI 38.7
--- NOTE | 2024-06-17 14:52 | MHC.OFFVIS ---
Vital Signs 06/17/24 14:52 Height 6 ft Weight 285 lb 7.978 oz BMI 38.7 BP 128/77 Blood Pressure Location Rt brachial Position Sitting Pulse 87 Pulse Source Doppler Pulse Oximetry (%) 98 Oxygen Delivery Method Room Air Intake Visit Reasons: Obstructive sleep apnea Allergies No Known Allergies Allergy (Verified 06/17/24 15:00) HPI HPI Obstructive sleep apnea: Details: 58-year-old gentleman, occasional cigar smoker, followed for severe obstructive sleep apnea now well controlled on CPAP therapy. [facility] Medical History (Updated 04/16/24 @ 10:59 by Pinky Doran RN) Elevated cholesterol HTN (hypertension) BPH (benign prostatic hyperplasia) Diabetes Sleep apnea Surgical History (Updated 04/16/24 @ 10:59 by Pinky Doran RN) Hx of hand surgery H/O colonoscopy Social History Household Members: Spouse Are you a primary daycare assistant to a significant other at home: No Do you presently have visiting nurse or other home services: No Patient Tobacco Use Status: Never used Tobacco Review of Systems Const Denies daytime sleepiness, Denies excessive sweating, Denies fatigue, Denies fever(s), Denies lethargy, Denies malaise, Denies night sweats, Denies snoring and Denies weight loss Eyes Denies blurry vision and Denies itchy eyes ENT Denies nasal congestion, Denies post nasal drip, Denies sinus pain, Denies sinus pressure and Denies other ( Thrush) Card Denies chest pain, Denies pedal edema, Denies dyspnea, Denies orthopnea and Denies paroxysmal nocturnal dyspnea Resp Denies cough, Denies hemoptysis, Denies excessive phlegm production, Denies dyspnea, Denies snoring and Denies wheezing GI Denies abdominal pain and Denies heartburn Musc Denies myalgias, Denies arthralgias and Denies joint swelling Skin/Breast Denies rash Neuro Denies memory loss and Denies seizure-like activity Psych Denies abnormal sleep pattern, Denies anxiety and Denies memory loss Endo Denies excessive sweating, Denies fatigue and Denies heat intolerance Erwin/Lymph Denies easy bruising Aller/Immun Denies itchy eyes, Denies seasonal rhinorrhea and Denies wheezing Physical Exam Vital Signs: Last Vital Signs Pulse 87 06/17/24 14:52 BP 128/77 06/17/24 14:52 Pulse Ox 98 06/17/24 14:52 Oxygen Delivery Method Room Air 06/17/24 14:52 BMI result Body Mass Index 38.7 Const General: no acute distress and alert Nutritional Appearance: not obese Orientation/consciousness: Other orientation findings ( oriented) HEENT Head: Yes atraumatic Eyes General: appearance normal, both eyes and all related structures Sclerae: sclerae normal EOM: EOMs intact bilaterally Neck Neck: Yes supple Lymphatic: no lymphadenopathy noted Resp Effort & Inspection: normal respiratory effort and no use of accessory muscles Auscultation: clear to auscultation bilaterally Cardio Rate: regular rate Rhythm: regular rhythm Heart sounds: no gallops, no murmurs and no rubs Skin General skin exam: other ( warm) Extrem General: No clubbing, No cyanosis and No edema Assessment & Plan Assessment & Plan (1) ANDRÉS (obstructive sleep apnea): Code(s): G47.33 - Obstructive sleep apnea (adult) (pediatric) Category: Medical Plan: Therapy and compliance report reviewed - patient is benefitting from and is compliant with noninvasive positive pressure ventilation treatment, using it greater than 70% of the time, more than 4 hours per night. Continue CPAP therapy. Coding Level of Care Code Est Pt Level 3 (75414) Diagnoses ANDRÉS (obstructive sleep apnea) G47.33
== END 2024-06-17 15:04 | disposition home or self-care (01) ==
PROVIDERS: PCP Internal Medicine; Visit Provider Internal Medicine Pulmonary Disease
DX: G47.33 Obstructive sleep apnea (adult) (pediatric) (principal)
CPT/HCPCS: 99213

== ENCOUNTER → 2024-06-17 14:51 | Outpatient (BNVA) | payer OTHER, SELFPAY | PROVIDERS: PCP Internal Medicine; Visit Provider Internal Medicine Pulmonary Disease ==

== ENCOUNTER 2024-06-20 07:35 | Outpatient (REF) | payer OTHER, SELFPAY ==
[2024-06-20 10:06] LABS: Estimated Average Glucose 140 mg/dL; Hemoglobin A1C 169.8367 umol/L; Hemoglobin A1c % 6.5 % (<6.0); Total Hemoglobin (HGBA1C) 3573.4858 umol/L
[2024-06-20 10:26] LABS: Alanine Aminotransferase 28 U/L (0-40); Albumin Level 4.4 g/dL (3.5-5.0); Alkaline Phosphatase 70 U/L (39-117); Anion Gap 14 (12-20); Aspartate Amino Transferase 30 U/L (5-37); Bilirubin Total 1.2 mg/dL (0.0-1.0); Blood Urea Nitrogen 25 mg/dL (9-16); Calcium 9.4 mg/dL (8.4-10.2); Carbon Dioxide 25 mmol/L (22-29); Chloride 103 mmol/L (96-108); Estimated Glomerular Filt Rate > 60; Glucose Random 136 mg/dL (60-115); Potassium 3.7 mmol/L (3.3-5.1); Sodium 138 mmol/L (135-145); Total Protein 7.8 g/dL (6.5-8.0)
== END 2024-06-20 07:36 | disposition home or self-care (01) ==
LOC: HO.HMGCLDS 07:35
PROVIDERS: PCP Internal Medicine; Visit Provider Internal Medicine
DX: E11.65 Type 2 diabetes mellitus with hyperglycemia (principal)
CPT/HCPCS: 36415; 80053; 83036

== ENCOUNTER 2024-06-25 15:46 | Outpatient (AMB) | payer OTHER, SELFPAY ==
--- NOTE | 2024-06-25 15:46 | A.OFFPC_ITS ---
Vital Signs 06/25/24 16:01 Height 5 ft 11.5 in Weight 282 lb BMI 38.8 BP 122/70 Blood Pressure Location Rt brachial Pulse 78 Pulse Source Pulse Oximeter Temp 97.7 F Pulse Oximetry (%) 97 Intake Visit Reasons: 3 month follow up Intake Note: just found out he has prostate cancer and feels that he is following in his fathers foot steps and is worried about his heart also says he some times gets a pain in his chest. Allergies No Known Allergies Allergy (Verified 06/25/24 17:31) Medication List - Last Reconciled 06/25/24 by Chen Dai PA-C cholecalciferol (vitamin D3) 50 mcg PO DAILY 90 days hydrochlorothiazide 25 mg PO QAM 90 days losartan 50 mg PO DAILY 90 days metformin 1,000 mg PO BID 90 days rosuvastatin 20 mg PO DAILY 90 days tamsulosin 0.4 mg PO BEDTIME 90 days PFSH Medical History (Updated 06/25/24 @ 17:33 by Chen Dai PA-C) Vitamin D deficiency Varicella zoster Tubular adenoma Prostate cancer Elevated cholesterol HTN (hypertension) BPH (benign prostatic hyperplasia) Diabetes Sleep apnea Surgical History (Updated 06/25/24 @ 17:33 by Chen Dai PA-C) Hx of hand surgery H/O colonoscopy (~04/18/24) Social History Household Members: Spouse Are you a primary housekeeper caregiver to a significant other at home: No Do you presently have visiting nurse or other home services: No Patient Tobacco Use Status: Never used Tobacco Physical exam (Primary Care) Vital Signs: Last Vital Signs Temp 97.7 F 06/25/24 16:01 Pulse 78 06/25/24 16:01 BP 122/70 06/25/24 16:01 Pulse Ox 97 06/25/24 16:01 Care Plan Goal for BP management: 130/80 BMI result Body Mass Index 38.8 BMI Assessment/Plan discussion: High BMI High, discussed plan: lifestyle, weight reduction, dietary, physical activity and alcohol moderation Tobacco/Smoking Status: Tobacco use Status Patient Tobacco Use Status Never used Tobacco 06/25/24 15:47 Coding Level of Care Code New Pt Level 4 (78656) Complex EM visit Add On G2211 Diagnoses Elevated cholesterol E78.00 HTN (hypertension) I10 Diabetes E11.9 Prostate cancer C61 Sleep apnea G47.30 Tubular adenoma D36.9 Vitamin D deficiency E55.9 Assessment & Plan Assessment & Plan (1) Elevated cholesterol: Code(s): E78.00 - Pure hypercholesterolemia, unspecified Category: Medical Plan: Patient currently on lovastatin 20 mg daily. Last LDL was on 03/20/2024 which was 40. Goal is less than 100 patient at go. Will continue this regimen. Condition is chronic and stable continue to monitor. (2) HTN (hypertension): Code(s): I10 - Essential (primary) hypertension Category: Medical Plan: Less than 130/80. Blood pressure 122/70 today. Patient to continue hydrochlorothiazide 25 mg daily, losartan 50 mg daily. Condition is chronic and stable continue to monitor. (3) Diabetes: Code(s): E11.9 - Type 2 diabetes mellitus without complications Category: Medical Plan: Patient currently on metformin 1000 mg b.i.d.. Patient's A1c level is now 6.5 on 06/20/2024. In 03/20/2024 his A1c was 10.4. Therefore patient is at goal due to go for A1c is less than 7. Condition is chronic and stable continue to monitor. (4) Prostate cancer: Code(s): C61 - Malignant neoplasm of prostate Category: Medical Plan: Patient currently being followed by [facility]. Has follow-up with urologist and surgery. Condition is chronic and stable continue to monitor. (5) Sleep apnea: Comment: uses CPAP Code(s): G47.30 - Sleep apnea, unspecified Category: Medical Plan: Patient currently utilizing CPAP. Condition is chronic and stable continue to monitor. (6) Tubular adenoma: Code(s): D36.9 - Benign neoplasm, unspecified site Category: Medical Plan: Patient being followed by GI. Last colonoscopy was on 04/18/2024. Condition is chronic and stable continue to monitor. (7) Vitamin D deficiency: Code(s): E55.9 - Vitamin D deficiency, unspecified Category: Medical Plan: Patient currently on vitamin-D supplement. Last vitamin-D level was 32.5 on 09/12/2023. Condition is chronic and stable continue to monitor. Plan Plan - Continue current dosage of Metformin for Type 2 Diabetes Mellitus and maintain dietary monitoring. - Refer the patient to a banking management consulting manager for further evaluation due to family history and existing heart disease risk factors. - Proceed with PSA testing next week and upcoming consultation for prostate cancer surgical options. - Monitor and manage hypertension and hyperlipidemia with current medications, with a plan to adjust according to weight loss and health improvements. - Maintain adherence to CPAP therapy for Obstructive Sleep Apnea to sustain improved energy levels and daytime functioning. Orders: Referrals Cardiology Referral C61 - Malignant neoplasm of prostate, E11.9 - Type 2 diabetes mellitus without complications, E78.00 - Pure hypercholesterolemia, unspecified, I10 - Essential (primary) hypertension Patient Instructions: Patient Instructions - Continue taking Metformin as prescribed. - Maintain healthy dietary habits and monitoring of blood sugar levels. - Follow up with cardiology to assess heart disease risk factors. - Undergo scheduled PSA test and attend upcoming urology appointments. - Adhere strictly to CPAP therapy for sleep apnea management. - Observe blood pressure and cholesterol; await further guidance post-weight management intervention. - Inform the clinic of any medication changes planned or undertaken. Scribe Plan - Not visible on output: History of Present Illness The patient is a 58-year-old male presenting for a three-month follow-up for management of Type 2 Diabetes Mellitus. Previously, his A1c was significantly elevated at 10%. The patient admitted to lapses in monitoring and control of blood glucose levels due to discontinuation of the Pogo monitoring device. With dietary changes and continuous vigilance, his A1c has markedly improved to 6.5%. The patient has been on Metformin 1000 mg twice daily for several years. He also reports being diagnosed with prostate cancer and is currently in the evaluation process, awaiting a repeat PSA test and an appointment with a robotic surgeon to discuss surgical options. The patient's medical history is significant for essential hypertension, currently managed with Losartan 50 mg daily and hydrochlorothiazide 25 mg daily as a booster for blood pressure control. He has hyperlipidemia managed with Rosuvastatin 20 mg daily. A familial history of heart disease concerns him, as his father underwent a quadruple bypass in his 60s and later at the age of 84 due to heart-related conditions. Additionally, he has a history of shingles on the left side of his face at the age of 15, which was persistent during high school. The patient also experiences seasonal allergies managed with Claritin and has vitamin D deficiency. The patient uses a CPAP machine for obstructive sleep apnea and reports dramatic improvements since starting therapy in mid-February, with increased alertness and no longer needing daytime naps. 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 - Exercise and Weight Loss: Actively working on losing weight and controlling dietary intake to manage diabetes and blood pressure. - Use of CPAP: Uses CPAP machine consistently since , significantly improving sleep quality and daytime alertness. - Family History: Significant for cardiovascular disease; his father required a quadruple bypass and due to heart conditions. Review of Systems - Cardiovascular: Reports no current signs of cardiovascular events but expresses concern due to family history. - Neurological: Denies hearing or vision problems impacting daily activities. - Allergies: Reports symptoms managed with Claritin; indicates pruritus if medication is not taken. - Genitourinary: Reports urinary urgency; evaluation ongoing for prostate cancer. Physical Exam Appearance: Alert. Oriented X3. No acute distress. Head: Normal external exam. Normocephalic. Atraumatic. Eyes: Pupils are equal, round, and reactive to light. Extraocular movements intact. Conjunctiva and sclera normal. Eyelids normal. Ears: External auditory canal normal. Tympanic membranes normal. No trouble hearing. Throat: Pharynx normal. Uvula midline. Moist mucous membranes. Neck: Normal inspection. Neck supple. Full range of motion. No adenopathy. Thyroid Normal. No meningeal signs. No neck mass noted. Cardiovascular: Normal heart rate and rhythm. Heart sound normal. No murmurs noted. Pulses normal throughout. Respiratory: No respiratory distress. Painless inspiration. Breath sounds normal. No wheezes/rales/rhonchi noted. Chest nontender. No accessory muscle usage noted or decreased air movement noted. Abdomen: Soft and nontender. Bowel sounds normal in all 4 quadrants. No distention noted. No organomegaly noted. No visible injury noted. Back: No costovertebral angle tenderness. Full range of motion noted. Skin: Skin warm and dry. Normal skin color. Normal skin turgor. No rashes/lesions/lacerations noted. Extremities: No lower extremity edema. Extremities exhibit normal range of motion. Extremities nontender. No pain when legs were examined. Neuro: Oriented X 3. No motor deficit. No sensory deficit. Reflexes normal. Results - Labs: Most recent A1c is 6.5%. Prior A1c was 10%. - Tests: PSA testing planned for the following week. - Previous Diagnostic Studies: Thyroid function was within normal limits; prior cholesterol levels were acceptable in March. Plan - Continue current dosage of Metformin for Type 2 Diabetes Mellitus and maintain dietary monitoring. - Refer the patient to a banking management consulting manager for further evaluation due to family history and existing heart disease risk factors. - Proceed with PSA testing next week and upcoming consultation for prostate cancer surgical options. - Monitor and manage hypertension and hyperlipidemia with current medications, with a plan to adjust according to weight loss and health improvements. - Maintain adherence to CPAP therapy for Obstructive Sleep Apnea to sustain improved energy levels and daytime functioning. Patient was informed and verbally consented to the use of an ambient scribe for clinic note documentation during this visit. Discussion Notes During the visit, I discussed the patient's satisfactory progress in controlling Type 2 Diabetes Mellitus. We deliberated the potential benefit of consulting a banking management consulting manager given his family history of cardiovascular disease, and I endorsed continuing with current medications for hypertension until further weight reduction is achieved. The significance of his CPAP therapy was reviewed, emphasizing its role in ameliorating his sleep apnea symptoms. Plans for re- evaluation of PSA and prostate cancer treatment options were outlined, prioritizing surgical consultation in the coming weeks. We anticipate further follow-up in six months to reassess health status and medication needs. Patient Instructions - Continue taking Metformin as prescribed. - Maintain healthy dietary habits and monitoring of blood sugar levels. - Follow up with cardiology to assess heart disease risk factors. - Undergo scheduled PSA test and attend upcoming urology appointments. - Adhere strictly to CPAP therapy for sleep apnea management. - Observe blood pressure and cholesterol; await further guidance post-weight management intervention. - Inform the clinic of any medication changes planned or undertaken.
--- OUTSIDE RECORDS SUMMARY | 2024-06-25 15:48 | XMS_ITS ---
Author Organization [facility] Address [address] [place] [phone] Care Team Providers Care Voice And Data Technician Name Role Phone Daniella (RETIRED) Mauricio LANCE Primary Care Provid er Unavailable René Chandler Jr REASON FOR VISIT screening Encounters Encounter Location Date Provider Diagnosis [facility] Outpatient [address] [place] [id number] 03/28/2024 René Chandler Jr PLAN OF TREATMENT No Information
--- OUTSIDE RECORDS SUMMARY | 2024-06-25 15:48 | XMS_ITS ---
Author Organization Mauricio Brewer DO, FAC Address [address] [place] [phone] Care Team Providers Care Wall Cleaner Name Role Phone Mauricio Brewer Primary Care [...] Date Provider Diagnosis Mauricio Alden Brewer DO, [address] [id number] 03/25/2024 Mauricio Brewer Type 2 diabetes kj [...] Months, Reason: follow up visit,review lab work Progress Notes * Examination Category Sub-Category Detail Notes General Examination GENERAL APPEARANCE: in no ac [place] distress, well developed, well nourished HEAD: normocephalic, atrau matic HEART: no murmurs, regular rate and rhythm, S1, S2 normal LUNGS: clear to auscultatio n bilaterally ABDOMEN: normal, bowel sounds present, soft, nontender, nondistended SKIN: warm and dry EXTREMITIES: no edema PSYCH: alert, oriented, cog nitive function intact
--- OUTSIDE RECORDS SUMMARY | 2024-06-25 15:48 | XMS_ITS | Patient Health Record ---
Author Organization [facility] Address [address] [place] [phone] Care Team Providers Care Digital Design Engineer Name Role Phone Daniella (RETIRED) Mauricio LANCE Primary Care Provid er Unavailable René Chandler Jr Unavailable ALLERGIES No Known Allergies RESULTS Component Value Reference Range Notes Pathology Reviewed date:04/22/2024 04:37:02 PM Interpretation: Performing Lab:[facility], [address] [place] [phone] Notes/Report: REASON FOR REFERRAL Reason F/U colonoscopy Referring Provider First Name Mauricio Referring Provider Last Name Daniella (RE TIRED) Referring Provider Speciality Internal M edicine Referred Provider René Chandler Jr General Notes Zeinab Shay 024 03:57:59 PM EDT > no referral required for [facility] per website Referral Priority Routine Referral Appointment [...] 30 day(s) Active Vitamin D3 50 MCG (1999) TAKE 1 CAPSU LE BY MOUTH EVERY [...] Problem Colon cancer screening (Z12.11) Active confirmed 632016538 Problem Personal history of colonic polyps (Z86.010) Active confirmed 534716159 Problem Encounter for other preprocedural examination (Z01.818) Active confirmed 70699408 Problem [facility]PC (current) use of oral hypoglycemic drugs (Z79.84) Active confirmed [id number] 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 (Z79.899) Active confirmed [id number] VITAL SIGNS Temperature 98.0 degrees Fahrenheit 02/20/2024 Blood pressure diastolic 74 mm Hg 02/20/2024 Height 72 in 02/20/2024 Blood pressure systolic 128 mm Hg 02/20/2024 Weight 291 lb 6 oz lbs 02/20/2024 BMI 39.51 kg/m2 02/20/2024 Encounters Encounter Location Date Provider Diagnosis [facility] [place] [address] [id number] 03/28/2024 René Chandler Jr [facility] [place] [address], [place] [id number] 04/18/2024 René Chandler Jr Colon cancer screening Z12.11 ; Personal history of colonic polyps Z86.0100 and Colon polyps K63.[address] [facility] [address] [place] [phone] 01/21/2024 René Chandler Jr 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 [address] [place] [phone] 03/19/2024 René Chandler Jr 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 current us e of diuretic (ICD-10 - Z79.899) 02/20/2024 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 (current) use of oral hypoglycemic drugs (ICD-10 - Z79.84) PLAN OF TREATMENT Future Test Test Name Order Date COLONOSCOPY 12/06/2012 COLONOSCOPY 06/12/2018 COLONOSCOPY 02/20/2024 Insurance Providers Payer Name Payer Address Payer Phone Subscriber Number Group Number Insured Name Patient Relationship to Insured Coverage Start Date Coverage End Date [facility] [address] [place] [address] [phone] [id number] [employer] Self - patient is the insured MEDICAL (GENERAL) HISTORY Medical History History ICD Code Diabetes mellitus type 2 Seasonal allergic rhinitis BPH, biopsy scheduled ANDRÉS/CPAP Hyperlipidemia Hypertension Vitamin D deficiency Colonoscopy 12/23, five-year followup for history of polyps. Surgical History Surgery Date(Month/Year) finger surgery
--- OUTSIDE RECORDS SUMMARY | 2024-06-25 15:49 | XMS_ITS ---
Author Organization [facility] Address [address] [place] [phone] Care Team Providers Care Electric Motor Analyst Name Role Phone Daniella (RETIRED) Mauricio LANCE Primary Care Provid er Unavailable René Chandler Jr Unavailable [phone] REASON FOR VISIT screening Encounters Encounter Location Date Provider Diagnosis [facility] [address] [place] [phone] 04/18/2024 René Chandler Jr Colon cancer screening Z12.11 ; Personal history of colonic polyps Z86.0100 and Colon polyps K63.5 ASSESSMENTS Encounter Date Diagnosis Assessment Notes Treatment Notes Treatment Clinical Notes 04/18/2024 Colon cancer screening (ICD-10 - Z12.11) 04/18/2024 Personal history of colonic polyps (ICD-10 - Z86.0100) 04/18/2024 Colon polyps (ICD-10 - K63.5) PLAN OF TREATMENT No Information
--- OUTSIDE RECORDS SUMMARY | 2024-06-25 15:49 | XMS_ITS ---
Author Organization Mauricio Brewer DO, FACP Address [address] [place], [place] [id number] Care Team Providers Care Roving Can Tender Name Role Phone Mauricio Brewer Primary Care Provider [phone] REASON FOR VISIT RE:New Refill Request Encounters Encounter Location Date Provider Diagnosis Mauricio Brewer DO, FACP [address] [place] [phone] 12/19/2023 Mauricio Brewer PLAN OF TREATMENT No Information
--- OUTSIDE RECORDS SUMMARY | 2024-06-25 15:49 | XMS_ITS ---
Author Organization [facility] Address [address] [place] [phone] Care Team Providers Care Concert Or Lecture Hall Manager Name Role Phone Daniella (RETIRED) Mauricio LANCE Primary Care Provid er Unavailable René Chandler Jr Unavailable [phone] REASON FOR VISIT pathology Encounters Encounter Location Date Provider Diagnosis [facility] [address] [place] [phone] 04/22/2024 René Chandler Jr PLAN OF TREATMENT No Information
--- OUTSIDE RECORDS SUMMARY | 2024-06-25 15:49 | XMS_ITS ---
Author Organization Mauricio Brewer DO, FAC Address [address] [place], [place] [phone] Care Team Providers Care Geothermal Hvac Technician Name Role Phone Mauricio Brewer Primary Care Provider REASON FOR VISIT 3 month f/u Encounters Encounter Location Date Provider Diagnosis Mauricio Brewer DO, FACP [address] [place] [phone] 06/25/2024 Mauricio Brewer PLAN OF TREATMENT No Information
[2024-06-25 16:01] VITALS: BP 122/70; PULSE 78; TEMP 36.5; O2SAT 97; BMI 38.8
== END 2024-06-25 16:21 | disposition home or self-care (01) ==
LOC: HO.HMCSH 15:46
PROVIDERS: PCP Internal Medicine; Visit Provider Physician Assistant Medical
DX: E78.00 Pure hypercholesterolemia, unspecified (principal); I10 Essential (primary) hypertension; E11.9 Type 2 diabetes mellitus without complications; C61 Malignant neoplasm of prostate; G47.30 Sleep apnea, unspecified; D36.9 Benign neoplasm, unspecified site; E55.9 Vitamin D deficiency, unspecified

== ENCOUNTER 2024-08-06 13:58 | Outpatient (AMB) | payer OTHER, SELFPAY ==
--- NOTE | 2024-08-06 14:06 | MHC.PC.OV ---
Vital Signs 08/06/24 14:09 Height 5 ft 11.5 in Weight 283 lb BMI 38.9 BP 134/71 Blood Pressure Location Lt brachial Pulse 71 Pulse Source Monitor Temp 96.8 F Pulse Oximetry (%) 97 Intake Visit Reasons: Prostatectomy 09/01; Dr. Landa, [facility] Intake Note: no issues Allergies No Known Allergies Allergy (Verified 08/06/24 14:33) Medication List - Last Reconciled 08/06/24 by Chen Dai PA-C cetirizine (Zyrtec) 10 mg PO DAILY PRN cholecalciferol (vitamin D3) 50 mcg PO DAILY 90 days hydrochlorothiazide 25 mg PO QAM 90 days losartan 50 mg PO DAILY 90 days metformin 1,000 mg PO BID 90 days rosuvastatin 20 mg PO DAILY 90 days tamsulosin 0.4 mg PO BEDTIME 90 days [facility] Medical History Class 2 obesity with body mass index (BMI) of 38.0 to 38.9 in adult Pre-operative clearance Vitamin D deficiency Varicella zoster Tubular adenoma Prostate cancer Elevated cholesterol HTN (hypertension) BPH (benign prostatic hyperplasia) Diabetes Sleep apnea Surgical History Hx of hand surgery H/O colonoscopy (~04/18/24) Social History Household Members: Spouse Are you a primary animal care giver to a significant other at home: No Do you presently have visiting nurse or other home services: No Patient Tobacco Use Status: Never used Tobacco Questionnaire PHQ-9 Over the last 2 weeks, how often have you been bothered by any of the following problems? 1. Little interest or pleasure in doing things: not at all 2. Feeling down, depressed, or hopeless: not at all 3. Trouble falling or staying asleep, or sleeping too much: not at all 4. Feeling tired or having little energy: not at all 5. Poor appetite or overeating: not at all 6. Feeling bad about yourself - or that you are a failure or have let yourself or your family down: not at all 7. Trouble concentrating on things, such as reading the newspaper or watching television: not at all 8. Moving or speaking so slowly that other people could have noticed. Or the opposite - being so fidgety or restless that you have been moving around a lot more than usual: not at all 9. Thoughts that you would be better off or of hurting yourself in some way: not at all Total score: 0 Depression Screening Interpretation: Negative Depression Screening Done: Yes 27197 - PHQ-9 Billing: Yes Source: Developed by Drs. Mauricio Mondragon, Agustina David, Jose Luis Corrigan and colleagues, with an educational charles from [employer]. Thrive Questionnaire Date Thrive assessed: 08/06/24 I am a: Patient What is your living situation today?: I have a steady place to live Within the past 12 months, did the food you bought not last and you didn't have the money to get more?: Never true Within the past 12 months, did you worry whether your food would run out before you got money to buy more?: Never true Do you have trouble paying for medicines?: No Do you have trouble getting transportation to medical appointments?: No Do you have trouble paying your heating and electricity bill?: No Do you have trouble taking care of your child, family member or friend?: No Do you have trouble with day-to-day activities such as bathing, preparing meals, shopping, managing finances, etc.?: No Are you currently unemployed and looking for a job?: No Are you interested in more education?: No Please select the resources that you would like help with: None THRIVE Score: 0 AUDIT C Alcohol Use Questionnaire (AUDIT-C) 1. How often do you have a drink containing alcohol?: Monthly or less 2. How many drinks containing alcohol do you have on a typical day when you are drinking?: 1 or 2 (less) 3. How often do you have six or more drinks on one occasion?: Never Total Score: 1 GEMA-7 AMB Questionnaire GEMA-7 Date GEMA - 7 assessed: 08/06/24 Feeling nervous, anxious, or on edge: 0 = Not at all Not being able to stop or control worryin = Not at all Worrying too much about different things: 0 = Not at all Trouble relaxin = Not at all Being so restless that it is hard to sit still: 0 = Not at all Becoming easily annoyed or irritable: 0 = Not at all Feeling afraid as if something awful might happen: 0 = Not at all Total GEMA-7 score (0-4 normal; 5-9 mild; 10-14 moderate; 15-21 severe): 0 Source: Developed by Drs. Mauricio Mondragon, Agustina David, Jose Luis Corrigan and colleagues, with an educational charles from [employer]. GEMA-7 Assessment Billing GEMA-7 Assessment Tool: GEMA-7 Assessment 11196 Physical exam (Primary Care) Vital Signs: Last Vital Signs Temp 96.8 F 08/06/24 14:09 Pulse 71 08/06/24 14:09 BP 134/71 08/06/24 14:09 Pulse Ox 97 08/06/24 14:09 Care Plan Goal for BP management: <130/80 at Goal BMI result Body Mass Index 38.9 BMI Assessment/Plan discussion: High BMI High, discussed plan: lifestyle, weight reduction, dietary, physical activity and alcohol moderation Tobacco/Smoking Status: Tobacco use Status Patient Tobacco Use Status Never used Tobacco 08/06/24 14:10 Depression Screening Interpretation: Negative Coding Level of Care Code Est Pt Level 4 (61542) Complex EM visit Add On G2211 Diagnoses Pre-operative clearance Z01.818 HTN (hypertension) I10 Elevated cholesterol E78.00 BPH (benign prostatic hyperplasia) N40.0 Prostate cancer C61 Vitamin D deficiency E55.9 Diabetes E11.9 Class 2 obesity with body mass index (BMI) of 38.0 to 38.9 in adult E66.812; Z68.38 Additional Codes PHQ-9 - 07164 - PHQ-9 Billing: Yes ([id number]) GEMA-7 Assessment Billing - GEMA-7 Assessment Tool: GEMA-7 Assessment 83095 ([id number]) Assessment & Plan Assessment & Plan (1) Pre-operative clearance: Code(s): Z01.818 - Encounter for other preprocedural examination Category: Medical Plan: Has preop clearance for robotic assisted laparoscopic prostatectomy with Dr. Russo on 09/01/2024 at [facility]. He has labs scheduled at [facility] and instructed to the fax the labs over to us. He is instructed to have an EKG and a chest x-ray at the [facility] before being cleared for preop clearance. If labs, EKG and chest x-ray within normal limits patient will be cleared for surgery for laparoscopic prostatectomy on 09/01/2024. Patient understands agrees with this plan. (2) HTN (hypertension): Code(s): I10 - Essential (primary) hypertension Category: Medical Plan: The patient remains on losartan for hypertension management with stable readings. He will continue current medications, with regular blood pressure monitoring recommended. (3) Elevated cholesterol: Code(s): E78.00 - Pure hypercholesterolemia, unspecified Category: Medical Plan: Managed with rosuvastatin. Continuing current therapy is essential, with scheduled lipid panels to monitor efficacy. (4) BPH (benign prostatic hyperplasia): Code(s): N40.0 - Benign prostatic hyperplasia without lower urinary tract symptoms Category: Medical Plan: Patient is scheduled for robotic assisted laparoscopic prostatectomy with Dr. Russo on 09/01/2024 at [facility]. If labs, EKG and chest x-ray within normal limits patient will be cleared for surgery. (5) Prostate cancer: Code(s): C61 - Malignant neoplasm of prostate Category: Medical Plan: Patient is scheduled for robotic assisted laparoscopic prostatectomy with Dr. Russo on 09/01/2024 at [facility]. If labs, EKG and chest x-ray within normal limits patient will be cleared for surgery. (6) Vitamin D deficiency: Code(s): E55.9 - Vitamin D deficiency, unspecified Category: Medical Plan: Continue vitamin D supplementation to sustain adequate serum concentrations and support bone health. (7) Diabetes: Code(s): E11.9 - Type 2 diabetes mellitus without complications Category: Medical Plan: The patient's diabetes is managed with metformin. Monitoring blood glucose levels is necessary, with attention to preoperative instructions regarding its use. (8) Class 2 obesity with body mass index (BMI) of 38.0 to 38.9 in adult: Code(s): E66.812 - Obesity, class 2; Z68.38 - Body mass index [BMI] 38.0-38.9, adult Category: Medical Plan: Recommend dietary modifications and increased physical activity aiming to support weight reduction and optimize surgical outcomes. Plan Plan Patient was informed and verbally consented to the use of an ambient scribe for clinic note documentation during this visit. 1. Essential Hypertension The patient remains on losartan for hypertension management with stable readings. He will continue current medications, with regular blood pressure monitoring recommended. 3. Vitamin D Deficiency Continue vitamin D supplementation to sustain adequate serum concentrations and support bone health. 4. Obesity Recommend dietary modifications and increased physical activity aiming to support weight reduction and optimize surgical outcomes. 5. Hyperlipidemia Managed with rosuvastatin. Continuing current therapy is essential, with scheduled lipid panels to monitor efficacy. 6. Type 2 Diabetes Mellitus The patient's diabetes is managed with metformin. Monitoring blood glucose levels is necessary, with attention to preoperative instructions regarding its use. Discussion Notes I discussed the necessity for preoperative preparations to clear the patient for a robotic prostatectomy scheduled for September 01, 2024. We reviewed his current medication regimen and the importance of maintaining stable management of his multiple chronic conditions, including Type 2 Diabetes Mellitus, hypertension, hyperlipidemia, and vitamin D deficiency, with checks on blood glucose levels and lipid panels to inform treatment decisions. Health risks associated with these conditions and potential medication interactions with surgical protocols were explored. I emphasized obtaining a recent EKG and chest x-ray to ensure his cardiac function is optimal prior to surgery. Comprehensive blood work will be conducted at [facility] to further evaluate his preoperative status. All diagnostic procedures were ordered and scheduled, with the patient understanding the importance of maintaining compliance with medications and suggested lifestyle adjustments to enhance surgical outcomes. Orders: Orders XR chest 2V Today Z01.818 - Encounter for other preprocedural examination ECG 12 lead EKG Today Z01.818 - Encounter for other preprocedural examination Patient Instructions: Patient Instructions - Attend [facility] for EKG and chest x-ray before August 18. - Have blood work scheduled at [facility] per instructions. - Continue prescribed medications unless specifically instructed to stop prior to surgery. - Monitor blood pressure and blood glucose regularly, and report any significant changes. - Maintain a diet and physical activity to support overall health. - Return for follow-up if any new symptoms occur or condition deteriorates before scheduled appointments. Scribe Plan - Not visible on output: History of Present Illness The patient is a 59-year-old male presenting with the need for preoperative clearance for a robotic prostatectomy. Scheduled for September 01, 2024, at [facility], his past medical history includes Type 2 Diabetes Mellitus with an A1c level of 6.5%, managed with metformin. His condition is compounded by hypertension treated with losartan, and hyperlipidemia managed with rosuvastatin and hydrochlorothiazide. Vitamin D deficiency is controlled with supplemental vitamin D, and benign prostatic hyperplasia is managed with tamsulosin. No complications with the anesthesia were reported, relieving potential surgical concerns. The patient denies being on anticoagulants such as aspirin or Plavix, ensuring compatibility with current medication regimes. Symptom reports show no recent occurrences of chest pain or dyspnea, while recent blood work showed no abnormalities. His preoperative evaluation mandates an ECG and chest x-ray housed at [facility], with additional blood analyses set at [facility], ensuring his comprehensive preoperative assessment. Social History - Employment: Not explicitly stated - Exercise: Not explicitly discussed - Current nutritional intake: Not discussed - Substance use: Not discussed - Family status: Not mentioned Review of Systems - Cardiovascular: Denies chest pain, dizziness, syncope, or palpitations. - Respiratory: Denies cough, shortness of breath, or wheezing. Physical Exam Appearance: Alert. Oriented X3. No acute distress. Head: Normal external exam. Normocephalic. Atraumatic. Eyes: Pupils are equal, round, and reactive to light. Extraocular movements intact. Conjunctiva and sclera normal. Eyelids normal. Ears: External auditory canal normal. Tympanic membranes normal. Throat: Pharynx normal. Uvula midline. Moist mucous membranes. Neck: Normal inspection. Neck supple. Full range of motion. No adenopathy. Thyroid Normal. No meningeal signs. No neck mass noted. Cardiovascular: Normal heart rate and rhythm. Heart sound normal. No murmurs noted. Pulses normal throughout. Respiratory: No respiratory distress. Painless inspiration. Breath sounds normal. No wheezes/rales/rhonchi noted. Chest nontender. No accessory muscle usage noted or decreased air movement noted. Abdomen: Soft and nontender. Bowel sounds normal in all 4 quadrants. No distention noted. No organomegaly noted. No visible injury noted. No pain in the belly other than maybe down there in the bladder area. Back: No costovertebral angle tenderness. Full range of motion noted. No pain over the kidneys. Skin: Skin warm and dry. Normal skin color. Normal skin turgor. No rashes/lesions/lacerations noted. Extremities: No lower extremity edema. Extremities exhibit normal range of motion. Extremities nontender. No leg swelling. Neuro: Oriented X 3. No motor deficit. No sensory deficit. Reflexes normal. No deficit noted. Results - Labs: Recent blood work results showing A1c level at 6.5%. - Tests and Diagnostics: Pending EKG and chest x-ray at [facility]; blood work scheduled at [facility] to evaluate CBC, CMP, and electrolyte levels.
[2024-08-06 14:09] VITALS: BP 134/71; PULSE 71; TEMP 36; O2SAT 97; BMI 38.9
--- OUTSIDE RECORDS SUMMARY | 2024-08-06 16:43 | XMS_ITS ---
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 Role Phone Daniella (RETIRED) Mauricio LANCE Primary Care Provid er Unavailable René Chandler Jr REASON FOR VISIT screening Encounters Encounter Location Date Provider Diagnosis [facility] Out[facility] [address] [place] [phone] 04/18/2024 René Chandler Jr Colon cancer screening Z12.11 ; Personal history of colonic polyps Z86.0100 and Colon polyps K63.5 Assessments Encounter Date Diagnosis (ICD Code) Assessment Notes Treatment Notes Treatment Clinical Notes Section Notes 04/18/2024 Colon cancer screening (ICD-10 - Z12.11) 04/18/2024 Personal history of colonic polyps (ICD-10 - Z86.0100) 04/18/2024 Colon polyps (ICD-10 - K63.5) Plan Of Treatment No Information Progress Notes * DORYS PACEDOB:1965 (59 yo M)Acc No.[id number]:04/18/2024 COLON WITH MAC Patient:?DORYS PACE Provider:?René Chandler MD :1965???Age:58 Y???Sex:Male Fito e:04/18/2024 Address:[address] [place], [place] [id number] Pcp:Mauricio Brewer (RETIRE D), DO Subjective: * Chief Complaints: * ???1. Screening. * Medical History:? Objective: * Vitals:? Assessment: * Assessment: 1.?Colon cancer screening - Z12.11 (Primary)???2.?Personal history of colonic polyps - Z86.0100???3.?Colon polyps - K63.5??? Plan: * Treatment: * Procedure Codes:?28265 COLON OSCOPY AND BIOPSY, 0529F INTRVL 3+YRS PTS CLNSCP DOCD * * The named appointment provid er may or may not be the originator of this progress note, and it is not deemed complete until electronically signed by the appointment provider. Sign off status: Pending * Provider:?René Chandler MD Date:?1 06/19/2023 Generated for Alvino holder/Angelica/Jose on:?08/06/2024 04:43 PM EDT
--- OUTSIDE RECORDS SUMMARY | 2024-08-06 16:43 | XMS_ITS ---
Author Organization [facility] Address [address] [place] [phone] Care Team Providers Care Clay Pigeon Setter Name Role Phone Daniella (RETIRED) Mauricio LANCE Primary Care Provid er Unavailable René Chandler Jr REASON FOR VISIT pathology Encounters Encounter Location Date Provider Diagnosis [facility] [address] [place] [phone] 04/22/2024 René Chandler Jr Plan Of Treatment No Information Progress Notes * DORYS PACEDOB:1965 (58 yo M)Acc No.[id number]:04/22/2024 Patient:?DORYS PACE :1965???Age:58 Y???Sex:Male Address:[address] [place] [address], [address] * true * Date:? Generated for Printi ng/Amarag/eTransmitting on:?08/06/2024 04:42 PM EDT
--- OUTSIDE RECORDS SUMMARY | 2024-08-06 16:43 | XMS_ITS ---
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 Role Phone Daniella (RETIRED) Mauricio LANCE Primary Care Provid er Unavailable René Chandler Jr REASON FOR VISIT screening Encounters Encounter Location Date Provider Diagnosis [facility] Out[facility] [address] [place] [phone] 03/28/2024 René Chandler Jr Plan Of Treatment No Information Progress Notes * DORYS PACEDOB:1965 (59 yo M)Acc No.[id number]:03/28/2024 COLON WITH MAC Patient:?DORYS PACE Provider:?René Chandler MD :1965???Age:58 Y???Sex:Male Fito e:03/28/2024 Address:[address] [place], [place] [id number] Pcp:Mauricio Brewer (RETIRE D), DO Subjective: * Chief Complaints: * ???1. Screening. * Medical History:? Objective: * Vitals:? Assessment: Plan: * Treatment: * * The named appointment provid er may or may not be the originator of this progress note, and it is not deemed complete until electronically signed by the appointment provider. Sign off status: Pending * Provider:?René Chandler MD Date:?1 05/28/2023 Generated for Pooli gallo/Angelica/eTransmitting on:?08/06/2024 04:42 PM EDT
--- OUTSIDE RECORDS SUMMARY | 2024-08-06 16:43 | XMS_ITS | Patient Health Record ---
Author Organization [facility] Address [address] [place] [address] Care Team Providers Care Enterer Name Role Phone Daniella (RETIRED) Mauricio LANCE Primary Care Provid er Unavailable René Chandler Jr Unavailable [phone] Allergies No Known Allergies Results Component Value Reference Range Notes Pathology Reviewed date:04/22/2024 04:37:02 PM Interpretation: Performing Lab:[facility], [address] [place] [id number] Notes/Report: Name: Pete Pace V Age/Sex: 58/M : 1965 Unit#: [id number] Attend Dr: René Chandler MD Re04/18/24 Status : [facility] Location: [facility] Disch: SPEC : [id number] REC STATUS: RAVINDER JIMÉNEZ NUM: [id number] DANETTE: 04/18/24-1109 [facility] DR: René Chandler MD ENTERED: 04/18/24-11 50 SP TYPE: Surgical OTHR DR: Mauricio Brewer DO ORDERED: HE Stain/3, Gross Micro L4 Diagnosis Colon, rectal polyp: Hyperplastic polyp. Clinical History Pre-Op Dx: Encounter for screening for malignant neoplasm of colon Post-Op Dx: Colon polyp Microscopic Description Microscopic sections reviewed. Material Received Rectal polyp Gross Description Received in formalin labeled ?rectal polyp? are 2 willingham-pink irregular tissue fragments measuring 0.2 and 0. 25 cm, submitted in toto in a cassette labeled A. CEDS Copies To: René Chandler MD [address] [place] [address] Mauricio Brewer DO [facility] [address] [place] [id number] Signed (si gnature on file) Joyce [place] 04/21/24 1230 END OF REPORT Reason For Referral Reason F/U colonoscopy Referring Provider First Name Mauricio Referring Provider Last Name Daniella (RE TIRED) Referring Provider Speciality Internal M edicine Referred Provider René Chandler Jr General Notes Elen Shayn 024 03:57:59 PM EDT > no referral required for [facility] per website Referral Priority Routine Referral Appointment Date 01/21/2024 Medications Medication SIG (Take, Route, Frequency, Duration) Notes [...] 30 day(s) Active Vitamin D3 50 MCG (2000 UT) TAKE 1 CAPSU LE BY MOUTH EVERY DAY FOR 90 DAYS Oral for 90 Active metFORMIN HCl 1000 MG TAKE 1 TABLET BY M OUTH TWICE A DAY WITH A MEAL FOR 90 DAYS Oral for 90 Active Immunizations Vaccine Route Administration Date Status Comme nts Influenza Unknown 02/13/2018 Administered Influenza Unknown 02/20/2024 Refused Problems Problem Type SNOMED Code ICD Code Onset Dates Problem Status W/U Status Risk Notes Problem 050540795 Colon cancer screening (Z12.11) Active confirmed Problem 464038838 Personal history of colonic polyps (Z86.010) Active confirmed Problem 50804933 Encounter for other preprocedural examination (Z01.818) Active confirmed Problem 956118293389302 continuous churn buttermaker (current) use of oral hypoglycemic drugs (Z79.84) Active confirmed Problem 28860988007990232 intermediate current use of diuretic (Z79.899) Active confirmed Vital Signs Temperature 98.0 degrees Fahrenheit 02/20/2024 Blood pressure diastolic 74 mm Hg 02/20/2024 Height 72 in 02/20/2024 Blood pressure systolic 128 mm Hg 02/20/2024 Weight 291 lb 6 oz lbs 02/20/2024 BMI 39.51 kg/m2 02/20/2024 Encounters Encounter Location Date Provider Diagnosis [facility] [address] [place], [place] [phone] 04/18/2024 René Chandler Jr Colon cancer screening Z12.11 ; Personal history of colonic polyps Z86.0100 and Colon polyps K63.5 [facility] [address] [place] [phone] 02/20/2024 René Chandler Jr Colon cancer screening Z12.11 ; Encounter for other preprocedural examination Z01.818 ; intermediate current use of diuretic Z79.899 and continuous churn buttermaker (current) use of oral hypoglycemic drugs Z79.84 [facility] [address] [place] [address] 03/19/2024 René Chandler Jr [facility] [address] [place] [address] 04/22/2024 René Chandler Jr Assessments Encounter Date Diagnosis (ICD Code) Assessment Notes Treatment Notes Treatment Clinical Notes Section Notes 04/18/2024 Colon cancer screening (ICD-10 - Z12.11) 04/18/2024 Personal history of colonic polyps (ICD-10 - Z86.0100) 02/20/2024 Colon cancer screening (ICD-10 - Z12.11) We discussed colonoscopy today. We discussed risks and benefits of the procedure today. He understands these and agrees to proceed. This will be scheduled at his convenience. He is advised to stop metformin and hydrochlorothiazide the day before the procedure. 02/20/2024 Encounter for other preprocedural examination (ICD-10 - Z01.818) We discussed colonoscopy today. We discussed risks and benefits of the procedure today. He understands these and agrees to proceed. This will be scheduled at his convenience. He is advised to stop metformin and hydrochlorothiazide the day before the procedure. 04/18/2024 Colon polyps (ICD-10 - K63.5) 02/20/2024 intermediate current use of diuretic (ICD-10 - Z79.899) We discussed colonoscopy today. We discussed risks and benefits of the procedure today. He understands these and agrees to proceed. This will be scheduled at his convenience. He is advised to stop metformin and hydrochlorothiazide the day before the procedure. 02/20/2024 intermediate (current) use of oral hypoglycemic drugs (ICD-10 - Z79.84) We discussed colonoscopy today. We discussed risks and benefits of the procedure today. He understands these and agrees to proceed. This will be scheduled at his convenience. He is advised to stop metformin and hydrochlorothiazide the day before the procedure. Plan Of Treatment Future Test Test Name Order Date COLONOSCOPY 12/06/2012 COLONOSCOPY 06/12/2018 COLONOSCOPY 02/20/2024 Insurance Providers Payer Name Payer Address Payer Phone Subscriber Number Group Number Insured Name Patient Relationship to Insured Coverage Start Date Coverage End Date [facility] [address] [place] [id number] PETE PACE Self - patient is the insured Medical (General) History Medical History History ICD Code Diabetes mellitus type 2 Seasonal allergic rhinitis BPH, biopsy scheduled ANDRÉS/CPAP Hyperlipidemia Hypertension Vitamin D deficiency Colonoscopy 12/23, five-year followup for history of polyps. Surgical History Surgery Date(Month/Year) finger surgery
== END 2024-08-06 14:28 | disposition home or self-care (01) ==
LOC: HO.HMCSH 13:58
PROVIDERS: PCP Internal Medicine; Visit Provider Physician Assistant Medical
DX: Z01.818 Encounter for other preprocedural examination (principal); I10 Essential (primary) hypertension; E78.00 Pure hypercholesterolemia, unspecified; N40.0 Benign prostatic hyperplasia without lower urinary tract symptoms; C61 Malignant neoplasm of prostate; E55.9 Vitamin D deficiency, unspecified; E11.9 Type 2 diabetes mellitus without complications; E66.812 Obesity, class 2; Z68.38 Body mass index [BMI] 38.0-38.9, adult

== ENCOUNTER → 2024-08-06 13:58 | Outpatient (BNVA) | payer OTHER, SELFPAY | PROVIDERS: PCP Internal Medicine; Visit Provider Physician Assistant Medical | DX: Z01.818 Encounter for other preprocedural examination (principal); I10 Essential (primary) hypertension; E78.00 Pure hypercholesterolemia, unspecified; N40.0 Benign prostatic hyperplasia without lower urinary tract symptoms; C61 Malignant neoplasm of prostate; E55.9 Vitamin D deficiency, unspecified; E11.9 Type 2 diabetes mellitus without complications; E78.5 Hyperlipidemia, unspecified; E66.812 Obesity, class 2; Z68.38 Body mass index [BMI] 38.0-38.9, adult; Z79.899 Other long term (current) drug therapy | CPT/HCPCS: 96127 ==

== ENCOUNTER → 2024-08-08 06:06 | Outpatient (REF) | payer OTHER, SELFPAY ==
--- NOTE | ~2024-08-08 | XR_ITS ---
CLINICAL HISTORY: Z01.818 - Encounter for other preprocedural examination 2 view chest x-ray Comparison: None Findings: The lungs are clear. Normal size heart. No acute fracture. IMPRESSION: 1. No acute findings. This document has been electronically signed by: Carlos Burrows MD on 08/08/2024 06:44:06
--- OUTSIDE RECORDS SUMMARY | 2024-08-08 06:09 | XMS_ITS | Patient Health Record ---
Author Organization [facility] Address [address] [place] [address] Care Team Providers Care Wildlife Ecologist Name Role Phone Daniella (RETIRED) Mauricio LANCE Primary Care Provid er Unavailable René Chandler Jr Unavailable [phone] Allergies No Known Allergies Results Component Value Reference Range Notes Pathology Reviewed date:04/22/2024 04:37:02 PM Interpretation: Performing Lab:[facility], [address] [place] [phone] Notes/Report: Name: Pete Pace V Age/Sex: 58/M : 1965 Unit#: [id number] Attend Dr: René Chandler MD Re04/18/24 Status : [facility] Location: [facility] Disch: SPEC : [id number] REC STATUS: RAVINDER JIMÉNEZ NUM: [id number] DANETTE: 04/18/24-[address] [facility] [address]: René Chandler MD ENTERED: 04/18/24-11 [...] A. CEDS Copies To: René Chandler MD [address] [place] [address] Mauricio Brewer DO [facility] [address] [place] [phone] Signed (si gnature on file) Joyce [place] 04/21/24 1230 END OF REPORT Reason For Referral Reason F/U colonoscopy Referring Provider First Name Mauricio Referring Provider Last Name Daniella (RE TIRED) Referring Provider Speciality Internal M edicine Referred Provider René Chandler Jr General Notes Elen Shayn 024 03:57:59 PM EDT > [facility] referral [facility] website Referral Priority Routine Referral [...] Problem Status W/U Status Risk Notes Problem 148365224 Colon cancer screening (Z12.11) Active confirmed Problem 879412047 Personal history of colonic polyps (Z86.010) Active confirmed Problem 29031302 Encounter for other preprocedural examination (Z01.818) Active confirmed Problem 674736874384189 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 drugs (Z79.84) Active confirmed Problem 96130579670341732 senior care current use of diuretic (Z79.899) Active confirmed Vital Signs Temperature 98.0 degrees Fahrenheit 02/20/2024 Blood pressure diastolic 74 mm Hg 02/20/2024 Height 72 in 02/20/2024 Blood pressure systolic 128 mm Hg 02/20/2024 Weight 291 lb 6 oz lbs 02/20/2024 BMI 39.51 kg/m2 02/20/2024 Encounters Encounter Location Date Provider Diagnosis [facility] [address] [place], [place] [phone] 04/18/2024 René Chandler Jr Colon cancer screening Z12.11 ; Personal history of colonic polyps Z86.0100 and Colon polyps K63.5 [facility] [address] [place] [phone] 02/20/2024 René Chandler Jr Colon cancer screening Z12.11 ; Encounter for other preprocedural examination Z01.818 ; senior care current use of diuretic Z79.899 and 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 We discussed risks and benefits of the procedure today. He understands these and agrees to proceed. This will be scheduled at his convenience. He is advised to stop metformin and hydrochlorothiazide the day before the procedure. 02/20/2024 senior care (current) use of oral hypoglycemic drugs (ICD-10 [...] Insured Coverage Start Date Coverage End Date [facility] [address] [place] [id number] PETE PACE Self - patient is the insured Medical (General) History Medical History History ICD Code Diabetes mellitus type 2 Seasonal allergic rhinitis BPH, biopsy scheduled ANDRÉS/CPAP Hyperlipidemia Hypertension Vitamin D deficiency Colonoscopy 12/23, five-year followup for history of polyps. Surgical History Surgery Date(Month/Year) finger surgery
--- OUTSIDE RECORDS SUMMARY | 2024-08-08 06:09 | XMS_ITS ---
Author Organization [facility] Address [address] [place] [phone] Care Team Providers Care Bank Accountant Name Role Phone Daniella (RETIRED) Mauricio LANCE Primary Care Provid er Unavailable René Chandler Jr REASON FOR VISIT screening Encounters Encounter Location Date Provider Diagnosis [facility] [address] [place] [phone] 03/28/2024 René Chandler Jr Plan Of Treatment No Information Progress Notes * DORYS PACEDOB:1965 (59 yo M)Acc No.[id number]:03/28/2024 COLON WITH MAC Patient:?DORYS PACE Provider:?René Chandler MD :1965???Age:58 Y???Sex:Male Fito e:03/28/2024 Address:[address] [place], [place] [phone] Pcp:Mauricio Brewer (RETIRE D), DO Subjective: * [...] Provider:?René Chandler MD Date:?1 05/28/2023 Generated for Alvino holder/Angelica/eTransmitting on:?08/08/2024 06:09 AM EDT
--- OUTSIDE RECORDS SUMMARY | 2024-08-08 06:09 | XMS_ITS ---
Author Organization [facility] Address [address] [place] [phone] Care Team Providers Care Administrative Staff Supervisor Name Role Phone Daniella (RETIRED) Mauricio LANCE Primary Care Provid er Unavailable René Chandler Jr REASON FOR VISIT pathology Encounters Encounter Location Date Provider Diagnosis [facility] [address] [place] [phone] 04/22/2024 René Chandler Jr Plan Of Treatment No Information Progress Notes * DORYS PACEDOB:1965 (58 yo M)Acc No.[id number]:04/22/2024 Patient:?DORYS PACE :1965???Age:58 Y???Sex:Male Address:[address] [place] [address], [phone] * true * Date:? Generated for Printi ng/Amarag/eTransmitting on:?08/08/2024 06:09 AM EDT
--- OUTSIDE RECORDS SUMMARY | 2024-08-08 06:10 | XMS_ITS ---
Author Organization [facility] Address [address] [place] [phone] Care Team Providers Care Dietetic Tech Name Role Phone Daniella (RETIRED) Mauricio LANCE Primary Care Provid er Unavailable René Chandler Jr REASON FOR VISIT screening Encounters Encounter Location Date Provider Diagnosis [facility] [address] [place] [phone] 04/18/2024 René Chandler Jr Colon cancer screening [...] Notes * DORYS PACEDOB:1965 (59 yo M)Acc No.[id number]:04/18/2024 COLON WITH MAC Patient:?DORYS PACE Provider:?René Chandler MD :1965???Age:58 Y???Sex:Male Fito e:04/18/2024 Address:[address] [place], [place] [phone] Pcp:Mauricio Brewer (RETIRE D), DO Subjective: * Chief Complaints: * ???1. Screening. * Medical History:? Objective: * Vitals:? Assessment: * Assessment: 1.?Colon cancer screening - Z12.11 (Primary)???2.?Personal history of colonic polyps - Z86.0100???3.?Colon polyps - K63.5??? Plan: * Treatment: * Procedure Codes:?14874 COLON OSCOPY AND BIOPSY, 0529F INTRVL 3+YRS PTS CLNSCP DOCD * * The named appointment provid er may or may not be the originator of this progress note, and it is not deemed complete until electronically signed by the appointment provider. Sign off status: Pending * Provider:?René Chandler MD Date:?1 06/19/2023 Generated for Alvino holder/Angelica/Jose on:?08/08/2024 06:09 AM EDT
--- NOTE | 2024-08-08 07:40 | ECG_ITS ---
Test Reason : pre op Blood Pressure : */* mmHG Vent. Rate : 77 BPM Atrial Rate : 77 BPM P-R Int : 170 ms QRS Dur : 80 ms QT Int : 386 ms P-R-T Axes : 56 -48 24 degrees QTcB Int : 436 ms Normal sinus rhythm Left axis deviation Inferior infarct , age undetermined Abnormal ECG No previous ECGs available Referred By: Chen Dai Electronically Signed By: [place] SEGAL
== END ==
LOC: HO.CARD 06:06
PROVIDERS: PCP Internal Medicine; Visit Provider Physician Assistant Medical
DX: Z01.818 Encounter for other preprocedural examination (principal)
CPT/HCPCS: 71046; 93005

== ENCOUNTER → 2024-08-08 06:13 | Outpatient (BNV) | payer OTHER, SELFPAY | PROVIDERS: PCP Internal Medicine; Visit Provider Specialist | DX: Z01.818 Encounter for other preprocedural examination (principal) | CPT/HCPCS: 71046 ==

== ENCOUNTER → 2024-08-08 07:40 | Outpatient (BNV) | payer OTHER, SELFPAY | PROVIDERS: PCP Internal Medicine; Visit Provider Internal Medicine | DX: R94.31 Abnormal electrocardiogram [ECG] [EKG] (principal); Z01.810 Encounter for preprocedural cardiovascular examination | CPT/HCPCS: 93010 ==

== ENCOUNTER 2024-11-05 08:03 | Outpatient (AMB) | payer OTHER, SELFPAY ==
[2024-11-05 08:22] VITALS: BP 128/90; PULSE 70; BMI 41.2
--- NOTE | 2024-11-05 08:22 | A.OFFVIS_ITS ---
Vital Signs 11/05/24 08:22 Height 5 ft 11 in Weight 295 lb 6.711 oz BMI 41.2 BP 128/90 H Blood Pressure Location Lt brachial Position Sitting Pulse 70 Pulse Source Pulse Oximeter Intake Visit Reasons: new patient dx htn Allergies No Known Allergies Allergy (Verified 08/06/24 14:33) Medication List - Last Reconciled 11/05/24 by Suresh Berry MD cetirizine (Zyrtec) 10 mg PO DAILY PRN cholecalciferol (vitamin D3) 50 mcg PO DAILY 90 days hydrochlorothiazide 25 mg PO QAM losartan 50 mg PO DAILY metformin 1,000 mg PO BID rosuvastatin 20 mg PO DAILY tamsulosin 0.4 mg PO BEDTIME 90 days HPI Comments Details: The patient is a 59-year-old male presenting with concerns about potential heart disease due to family history and episodes of sharp chest pain. The patient reports a family history of heart disease, with his father having experienced heart issues in his 60s. The patient himself has experienced occasional sharp chest pain, which he describes as random and not associated with exertion. He has not experienced these pains recently, and they do not occur during physical activity such as walking up inclines or stairs. The patient has a history of prostate cancer, for which he underwent surgery in September and is currently in remission. He is awaiting further evaluation in December to confirm his remission status. The patient is generally active, able to perform activities such as walking up stairs and inclines without difficulty. He acknowledges the need to lose weight and has been making dietary changes, such as reducing intake of ice cream and bread, to aid in weight loss. The patient has a history of hypertension, diabetes mellitus, and hyperlipidemia, for which he is on medication. He also uses a CPAP machine for obstructive sleep apnea, which he reports has significantly improved his quality of sleep. [facility] Medical History Class 2 obesity with body mass index (BMI) of 38.0 to 38.9 in adult Pre-operative clearance Vitamin D deficiency Varicella zoster Tubular adenoma Prostate cancer Elevated cholesterol HTN (hypertension) BPH (benign prostatic hyperplasia) Diabetes Sleep apnea Surgical History Hx of hand surgery H/O colonoscopy (~04/18/24) Family History (Updated 11/05/24 @ 08:31 by Estefany Villegas) Mother No problems noted. Father History of quadruple bypass Social History (Updated 11/05/24 @ 08:27 by Estefany Villegas) Household Members: Spouse Are you a primary daycare teacher to a significant other at home: No Do you presently have visiting nurse or other home services: No Alcohol intake: current Alcohol intake frequency: holidays/special occasions only Patient Tobacco Use Status: Never used Tobacco Tobacco use type: Cigarette Review of Systems Const Denies weakness ENT Denies dizziness Card Denies chest pain, Denies chest pain with activity, Denies syncope, Denies rapid heart rate, Denies pedal edema, Denies edema, Denies leg edema, Denies lightheadedness, Denies palpitations, Denies dyspnea, Denies dyspnea on exertion and Denies orthopnea Resp Denies cough, Denies dyspnea and Denies dyspnea on exertion GI Denies hematochezia and Denies change in stool character Musc Denies abnormal gait, Denies muscle cramps, Denies muscle weakness, Denies numbness, Denies radiating pain into limb and Denies tingling Neuro Denies abnormal gait, Denies dizziness, Denies syncope, Denies numbness, Denies tingling and Denies weakness Endo Denies palpitations Physical Exam Vital Signs: Last Vital Signs Pulse 70 11/05/24 08:22 BP 128/90 H 11/05/24 08:22 BMI result Body Mass Index 41.2 Const General: comfortable and no acute distress Orientation/consciousness: patient oriented x3 HEENT Other: Unremarkable Head: Yes normal to inspection Neck Neck: Yes normal visual inspection Chest Chest palpation & inspection: normal inspection of the chest Resp Auscultation: clear to auscultation bilaterally Cardio Palpation: normal PMI Heart sounds: S1 normal heart sound present, S2 normal heart sound present, no gallops, no murmurs and no rubs GI Palpation (GI): Soft to palpation Back/Spine/Pelvis Other: unremarkable Skin General skin exam: no rashes or lesions noted Neuro General: patient oriented x3 Extrem General: Yes normal to inspection Psych Mental Status: mental status grossly normal Assessment & Plan Assessment & Plan (1) Precordial chest pain: Code(s): R07.2 - Precordial pain Category: Medical (2) Abnormal EKG: Code(s): R94.31 - Abnormal electrocardiogram [ECG] [EKG] Category: Medical (3) Diabetes: Code(s): E11.9 - Type 2 diabetes mellitus without complications Category: Medical (4) HTN (hypertension): Code(s): I10 - Essential (primary) hypertension Category: Medical (5) Elevated cholesterol: Code(s): E78.00 - Pure hypercholesterolemia, unspecified Category: Medical (6) ANDRÉS (obstructive sleep apnea): Code(s): G47.33 - Obstructive sleep apnea (adult) (pediatric) Category: Medical Plan In the recent EKG, underlying rhythm is sinus at 77/Min; leftward axis; cannot exclude old inferior infarct could also be from body habitus; normal TX and corrected QT. Overall, numerous cardiovascular risk factors, atypical chest pain, strong family history of CAD in father. Recommend comprehensive cardiac workup and we will pursue an echocardiogram and coronary CTA. Plan discussed with patient and he is agreeable for the same. Discussion Notes I discussed with the patient the importance of evaluating his cardiac health due to his family history and episodes of sharp chest pain. We agreed on performing a coronary CT angiography and an echocardiogram to rule out any significant cardiac issues. I explained the procedures, including the use of IV dye for the CT scan, and confirmed that he has no known allergies to the dye. We also discussed the importance of maintaining his current medication regimen and lifestyle modifications to manage his hypertension, diabetes, and hyperlipidemia. I emphasized the need for regular physical activity and dietary changes to aid in weight management. Follow-up was arranged to review the results of the cardiac tests and to reassess his prostate cancer status in December. Patient was informed and verbally consented to the use of an ambient scribe for clinic note documentation during this visit. Orders: Orders CA echo transthoracic complete Today R07.2 - Precordial pain Basic Metabolic Panel Today R07.2 - Precordial pain CT Cardiac Coronary Angio Today I25.10 - Atherosclerotic heart disease of inaja coronary artery without angina pectoris, R07.2 - Precordial pain Patient Instructions: - Continue taking your medications for blood pressure, diabetes, and cholesterol as prescribed. - Maintain your dietary changes, focusing on reducing intake of high-calorie foods. - Increase physical activity, but not pursue anything aggressive till the testi ng is completed. - Attend scheduled tests: coronary CT angiography and echocardiogram. - Follow up to review test results. Coding Level of Care Code New Pt Level 4 (04118) Complex EM visit Add On G2211 Diagnoses Precordial chest pain R07.2 Abnormal EKG R94.31 Diabetes E11.9 HTN (hypertension) I10 Elevated cholesterol E78.00 ANDRÉS (obstructive sleep apnea) G47.33
== END 2024-11-05 08:45 | disposition home or self-care (01) ==
LOC: HO.HCS 08:04
PROVIDERS: PCP Internal Medicine; Visit Provider Internal Medicine
DX: R07.2 Precordial pain (principal); R94.31 Abnormal electrocardiogram [ECG] [EKG]; E11.9 Type 2 diabetes mellitus without complications; I10 Essential (primary) hypertension; E78.00 Pure hypercholesterolemia, unspecified; G47.33 Obstructive sleep apnea (adult) (pediatric)
CPT/HCPCS: 99214

== ENCOUNTER 2024-12-29 15:34 | Outpatient (AMB) | payer OTHER, SELFPAY ==
[2024-12-29 15:43] VITALS: BP 119/64; PULSE 69; RESP 16; TEMP 36.7; O2SAT 98; BMI 40.9
--- NOTE | 2024-12-29 15:43 | A.OFFPC_ITS ---
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: No Accompanied by: Self / Same As Patient Allergies No Known Allergies Allergy (Verified 12/29/24 15:44) Tobacco use date assessed: 12/29/24 Dental Screening Dental Screen Date: 12/29/24 Did you have a dental visit in the last 12 months?: Yes Did you have a dental problem in the last 6 months where you did not have access to dental care?: No Was dental information given to patient?: Patient has dentist [facility] Medical History Class 2 obesity with body mass index (BMI) of 38.0 to 38.9 in adult Pre-operative clearance Vitamin D deficiency Varicella zoster Tubular adenoma Prostate cancer Elevated cholesterol HTN (hypertension) BPH (benign prostatic hyperplasia) Diabetes Sleep apnea Surgical History Hx of hand surgery H/O colonoscopy (~04/18/24) Family History Mother No problems noted. Father History of quadruple bypass Social History Household Members: Spouse Housing: House Are you a primary director of primary care to a significant other at home: No Do you presently have visiting nurse or other home services: No Alcohol intake: current Alcohol intake frequency: holidays/special occasions only Patient Tobacco Use Status: Never used Tobacco Tobacco use type: Cigarette service: No Current occupational status: employed Cognitive needs: No Hearing needs: No Vision needs: No Questionnaire PHQ-9 Over the last 2 weeks, how often have you been bothered by any of the following problems? 1. Little interest or pleasure in doing things: not at all 2. Feeling down, depressed, or hopeless: not at all 3. Trouble falling or staying asleep, or sleeping too much: not at all 4. Feeling tired or having little energy: not at all 5. Poor appetite or overeating: not at all 6. Feeling bad about yourself - or that you are a failure or have let yourself or your family down: not at all 7. Trouble concentrating on things, such as reading the newspaper or watching television: not at all 8. Moving or speaking so slowly that other people could have noticed. Or the opposite - being so fidgety or restless that you have been moving around a lot more than usual: not at all 9. Thoughts that you would be better off or of hurting yourself in some way: not at all Total score: 0 Depression Screening Interpretation: Negative Depression Screening Done: Yes 87391 - PHQ-9 Billing: Yes Source: Developed by Drs. Mauricio Mondragon, Agustina David, Jose Luis Corrigan and colleagues, with an educational charles from [employer]. Thrive Questionnaire Date Thrive assessed: 08/06/24 I am a: Patient What is your living situation today?: I have a steady place to live Within the past 12 months, did the food you bought not last and you didn't have the money to get more?: Never true Within the past 12 months, did you worry whether your food would run out before you got money to buy more?: Never true Do you have trouble paying for medicines?: No Do you have trouble getting transportation to medical appointments?: No Do you have trouble paying your heating and electricity bill?: No Do you have trouble taking care of your child, family member or friend?: No Do you have trouble with day-to-day activities such as bathing, preparing meals, shopping, managing finances, etc.?: No Are you currently unemployed and looking for a job?: No Are you interested in more education?: No Please select the resources that you would like help with: None THRIVE Score: 0 AUDIT C Alcohol Use Questionnaire (AUDIT-C) 1. How often do you have a drink containing alcohol?: Monthly or less 2. How many drinks containing alcohol do you have on a typical day when you are drinking?: 1 or 2 (less) 3. How often do you have six or more drinks on one occasion?: Never Total Score: 1 GEMA-7 AMB Questionnaire GEMA-7 Date GEMA - 7 assessed: 08/06/24 Feeling nervous, anxious, or on edge: 0 = Not at all Not being able to stop or control worryin = Not at all Worrying too much about different things: 0 = Not at all Trouble relaxin = Not at all Being so restless that it is hard to sit still: 0 = Not at all Becoming easily annoyed or irritable: 0 = Not at all Feeling afraid as if something awful might happen: 0 = Not at all Total GEMA-7 score (0-4 normal; 5-9 mild; 10-14 moderate; 15-21 severe): 0 Source: Developed by Drs. Mauricio Mondragon, Agustina David, Jose Luis Corrigan and colleagues, with an educational charles from [employer]. GEMA-7 Assessment Billing GEMA-7 Assessment Tool: GEMA-7 Assessment 13662 Physical exam (Primary Care) Vital Signs: Last Vital Signs Temp 98.1 F 12/29/24 15:43 Pulse 69 12/29/24 15:43 Resp 16 12/29/24 15:43 BP 119/64 12/29/24 15:43 Pulse Ox 98 12/29/24 15:43 BMI result Body Mass Index 40.9 Tobacco/Smoking Status: Tobacco use Status Tobacco use date assessed 12/29/24 12/29/24 15:53 Patient Tobacco Use Status Never used Tobacco 12/29/24 15:53 Tobacco use type Cigarette 12/29/24 15:53 PHQ-9: PHQ-9 Score PHQ-9: Total score 0 12/29/24 15:53 Depression Screening Interpretation: Negative Thrive Assessment: Date of Thrive Assessment Date Thrive assessed 08/06/24 12/29/24 15:53 Coding Level of Care Code Est Pt Level 4 (90597) Complex EM visit Add On G2211 Diagnoses BPH (benign prostatic hyperplasia) N40.0 Additional Codes GEMA-7 Assessment Billing - GEMA-7 Assessment Tool: GEMA-7 Assessment 66432 ([id number]) PHQ-9 - 56361 - PHQ-9 Billing: Yes ([id number]) Assessment & Plan Assessment & Plan (1) BPH (benign prostatic hyperplasia): Code(s): N40.0 - Benign prostatic hyperplasia without lower urinary tract symptoms Category: Medical Plan: History of Present Illness - The patient is a 59-year-old male presenting with a follow-up after prostatectomy and to discuss cardiovascular evaluation. - Prostatectomy was performed in August to early September, and the patient reported healing well and returning to work by the end of September. - The patient reports normal urination and only mild erectile dysfunction post- surgery. - Recent PSA levels were undetectable, indicating no current prostate cancer activity. - Cardiovascular evaluation was recommended earlier this year, and the patient has upcoming appointments scheduled. - The patient acknowledges the need for weight loss and is currently managing medication adherence, with a recent refill of vitamin D. 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 - Exercise and weight management: The patient acknowledges the need for weight loss but finds it challenging. Review of Systems - Genitourinary: Reports normal urination. Denies significant erectile dysfunction. - Cardiovascular: Denies chest pain or other cardiovascular symptoms. Physical Exam General: Cooperative and healthy appearing Nutritional Appearance: Well nourished Orientation/consciousness: Patient oriented x3 Limitations: No limitations Head: Normal to inspection General: Appearance normal, both eyes and all related structures Neck: Normal visual inspection Chest: Normal palpation of entire chest wall Respiratory: Normal respiratory effort Neurology: Patient oriented x3 Results - Labs: PSA levels were undetectable. Plan 1. Prostatectomy - Continue monitoring PSA levels to ensure no recurrence of prostate cancer. 2. Erectile Dysfunction - Mild erectile dysfunction noted; no specific intervention required at this time. 3. Preventative Care: Cardiovascular Evaluation - Follow-up with cardiology for scheduled evaluations to assess cardiovascular health. Discussion Notes During the visit, we discussed the patient's recovery from prostatectomy, which has been progressing well with undetectable PSA levels. We also reviewed the mild erectile dysfunction, which does not currently require intervention. The patient is scheduled for a cardiovascular evaluation to ensure optimal heart health. We emphasized the importance of weight management and medication adherence, particularly regarding vitamin D supplementation. Patient Instructions - Continue regular PSA monitoring as advised. - Attend scheduled cardiovascular evaluations. - Maintain medication adherence, including vitamin D supplementation. - Focus on weight management strategies.
== END 2024-12-29 16:37 | disposition home or self-care (01) ==
LOC: HO.HMCSH 15:34
PROVIDERS: PCP Internal Medicine; Visit Provider Internal Medicine
DX: N40.0 Benign prostatic hyperplasia without lower urinary tract symptoms (principal)

== ENCOUNTER → 2024-12-29 15:34 | Outpatient (BNVA) | payer OTHER, SELFPAY | PROVIDERS: PCP Internal Medicine; Visit Provider Internal Medicine | DX: N40.0 Benign prostatic hyperplasia without lower urinary tract symptoms (principal); N52.9 Male erectile dysfunction, unspecified | CPT/HCPCS: 96127 ==

== ENCOUNTER 2025-01-03 07:24 | Outpatient (REF) | payer OTHER, SELFPAY ==
[2025-01-03 11:18] LABS: Anion Gap 15 (12-20); Blood Urea Nitrogen 28 mg/dL (9-16); Calcium 9.2 mg/dL (8.4-10.2); Carbon Dioxide 25 mmol/L (22-29); Chloride 105 mmol/L (96-108); Estimated Glomerular Filt Rate > 60; Potassium 3.9 mmol/L (3.3-5.1); Sodium 141 mmol/L (135-145)
== END 2025-01-03 07:25 | disposition home or self-care (01) ==
LOC: HO.HMGCLDS 07:24
PROVIDERS: PCP Internal Medicine; Visit Provider Internal Medicine
DX: R07.2 Precordial pain (principal)
CPT/HCPCS: 36415; 80048

== ENCOUNTER → 2025-01-06 13:47 | Outpatient (REF) | payer OTHER, SELFPAY ==
--- NOTE | 2025-01-06 13:49 | CA_ITS ---
Transthoracic Echocardiogram Patient (Last, First, Middle): Pete Vela V Gender: M Date of : 1965 Age: 59 Procedure Date: 01/06/2025 Procedure Type: Transthoracic Echocardiogram Location: OP Height: 182.88 cm Weight: 131.54 kg BSA: 2.49 m2 Heart Rate: 67 bpm BP: 119 / 64 mmHg Barrel Drum Cutter: SB Referring MD: Suresh Berry MD Symptoms: R07.2 - Precordial pain Study Quality: Adequate w contrast ECG Rhythm: Sinus Conclusions: - The left ventricular systolic function is normal. The visually estimated ejection fraction is between 60-65%. - No obvious valvular pathology seen on this study. Findings Procedure Information Contrast agent, definity, is being given per protocol without apparent complications. The quality of the study was technically difficult. The study quality is limited by patients body habitus. Left Ventricle Normal left ventricular cavity size. There is mildly increased left ventricular wall thickness. The left ventricular systolic function is normal. The visually estimated ejection fraction is between 60-65%. There is no evidence of regional wall motion abnormalities. Diastolic function is normal for age. There is moderate septal and moderate basal asymmetric hypertrophy. Right Ventricle Mildly increased right ventricular cavity size. There is normal right ventricular systolic function. Atria Both atria are normal in size. Aortic Valve There is a normal trileaflet aortic valve. There is mild calcification of the aortic valve. There is no aortic valve stenosis. There is no aortic valve regurgitation. Mitral Valve The mitral valve appears normal. There is trace mitral valve regurgitation. There is no mitral valve stenosis. Pulmonic Valve The pulmonic valve is likely normal. Tricuspid Valve Normal tricuspid valve structure. There is trace tricuspid valve regurgitation. There is no evidence of pulmonary hypertension. Great Vessels The asc aorta is normal in size. Small plaque is seen in the sino tubular ridge. Venous The inferior vena cava was not well visualized. Pericardium/Pleural There is no evidence of pericardial effusion. Prior Study Comparison No prior study available for comparison. Recommendations, Care & Conclusions No obvious valvular pathology seen on this study. Measurements 2D Linear Measurements IVSd: 1.52 0.6-0.9/0.6-1.0 cm LVIDd: 4.74 3.9-5.3/4.2-5.9 cm LVIDd Index: 1.90 2.4-3.2/2.2-3.1 cm/m2 LVIDs: 3.41 2.0-3.6 cm LVPWd: 1.13 0.7-1.1 cm LA Diam: 3.40 2.7-3.8/3.0-4.0 cm LAIDs Index: 1.37 1.5-2.3 cm/m2 LV Mass: 308.97 67-162/88-224 g LV Mass Index: 124.08 43-95/49-115 g/m2 LVOT Diam: 2.40 3.0+(-)1.3 cm 2D Systolic Function EF 4C: 76.50 >55% EF 2C: 63.90 >55% EF BiP: 71.40 >55% Mitral Valve MV Pk E: 0.70 MV PK A: 0.61 MV Decel Time: 253.00 E/A: 1.10 E'Lateral: 10.20 E'Medial: 5.98 E/E' Med: 11.80 E/E' Lat: 6.90 PHT: 74.00 MVA PHT: 2.97 Decel Parker: 2.78 Aortic Valve AoV Pk Frank: 1.14 AoV Pk Grad: 5.00 YANA: 4.05 LVOT LVOT Pk Frank: 1.01 LVOT Mn Frank: 0.70 LVOT VTI: 0.24 LVOT Pk Grad: 4.00 LVOT Mn Grad: 2.00 LVOT Diam: 2.40 LVOT Area: 4.52 Diastolic Function MV Pk E: 0.70 MV Pk A: 0.61 E/A: 1.10 E'Medial: 5.98 E/E' Med: 11.80 E' Laterial: 10.20 E/E' Lat: 6.90 Right Ventricle TAPSE (mm): 24.30 TVS' Frank: 11.10 Tricuspid Valve TR Pk Frank: 2.13 TR Pk Grad: 18.00 RA Press: 3.00 RVSP: 21.00 Great Vessels Aorta Sinus of Valsalva: 3.60 2.0-3.5 cm Ao Asc: 3.40 2.1-3.4 cm Pulmonary Veins Pulm Vein S/D 1.20 Pulmonary Valve PV Pk Frank: 0.90 Peak PV Grad: 3.00 Updated in Other Vendor System with Status of Final Suresh Berry MD electronically signed on 01/07/2025 10:14:11 AM with status of Final
== END ==
LOC: HO.CARD 13:47
PROVIDERS: PCP Internal Medicine; Visit Provider Internal Medicine
DX: R07.2 Precordial pain (principal)
CPT/HCPCS: 93306; Q9957

== ENCOUNTER → 2025-01-06 13:49 | Outpatient (BNV) | payer OTHER, SELFPAY | PROVIDERS: PCP Internal Medicine; Visit Provider Internal Medicine | DX: R07.2 Precordial pain (principal) | CPT/HCPCS: 93306 ==

== ENCOUNTER 2025-03-12 14:55 | Outpatient (AMB) | payer OTHER, SELFPAY ==
--- NOTE | 2025-03-12 15:22 | A.OFFVIS_ITS ---
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 He was seen recently because of concerns due to heart issues in his family. He is also reporting some random chest pains. Nothing clearly exertional. Multiple risk factors including diabetes, hypertension, dyslipidemia, obstructive sleep apnea, obesity. Since last seen, he is generally doing good. He has undergone a coronary CTA. [facility] Medical History Class 2 obesity with body mass index (BMI) of 38.0 to 38.9 in adult Pre-operative clearance Vitamin D deficiency Varicella zoster Tubular adenoma Prostate cancer Elevated cholesterol HTN (hypertension) BPH (benign prostatic hyperplasia) Diabetes Sleep apnea Surgical History Hx of hand surgery H/O colonoscopy (~04/18/24) Family History Mother No problems noted. Father History of quadruple bypass Social History Household Members: Spouse Housing: House Are you a primary childcare provider to a significant other at home: No Do you presently have visiting nurse or other home services: No Alcohol intake: current Alcohol intake frequency: holidays/special occasions only Patient Tobacco Use Status: Never used Tobacco Tobacco use type: Cigarette service: No Current occupational status: employed Cognitive needs: No Hearing needs: No Vision needs: No Review of Systems Const Denies chills, Denies fatigue, Denies fever(s), Denies frequent falls, Denies weakness, Denies weight gain and Denies weight loss ENT Denies dizziness Card Denies chest pain, Denies leg edema, Denies lightheadedness, Denies palpitations, Denies dyspnea and Denies dyspnea on exertion Resp Denies cough, Denies dyspnea and Denies dyspnea on exertion GI Denies hematochezia Musc Denies abnormal gait, Denies muscle weakness, Denies numbness, Denies radiating pain into limb and Denies tingling Neuro Denies abnormal gait, Denies dizziness, Denies frequent falls, Denies numbness, Denies tingling and Denies weakness Endo Denies fatigue and Denies palpitations Physical Exam Vital Signs: Last Vital Signs Pulse 83 03/12/25 15:23 BP 100/70 03/12/25 15:23 BMI result Body Mass Index 40.6 Const General: comfortable and no acute distress Orientation/consciousness: patient oriented x3 HEENT Other: Unremarkable Head: Yes normal to inspection Neck Neck: Yes normal visual inspection Chest Chest palpation & inspection: normal inspection of the chest Resp Auscultation: clear to auscultation bilaterally Cardio Palpation: normal PMI Heart sounds: S1 normal heart sound present, S2 normal heart sound present, no gallops, no murmurs and no rubs GI Palpation (GI): Soft to palpation Back/Spine/Pelvis Other: unremarkable Skin General skin exam: no rashes or lesions noted Neuro General: patient oriented x3 Extrem General: Yes normal to inspection Psych Mental Status: mental status grossly normal Assessment & Plan Assessment & Plan (1) Atherosclerotic cardiovascular disease: Code(s): I25.10 - Atherosclerotic heart disease of pala coronary artery without angina pectoris Category: Medical (2) Diabetes: Code(s): E11.9 - Type 2 diabetes mellitus without complications Category: Medical (3) HTN (hypertension): Code(s): I10 - Essential (primary) hypertension Category: Medical (4) Elevated cholesterol: Code(s): E78.00 - Pure hypercholesterolemia, unspecified Category: Medical (5) ANDRÉS (obstructive sleep apnea): Code(s): G47.33 - Obstructive sleep apnea (adult) (pediatric) Category: Medical Plan Cardiac studies reviewed. Echocardiogram with LVEF of 60-65%. Septal hypertrophy. No significant valvul ar findings. Coronary CTA showed minimal stenosis of the mid LAD/proximal circumflex due to focal calcific plaques. There was also question of pulmonary embolism but that was ruled out on a subsequent dedicated study. Multiple cardiovascular risk factors, mild coronary artery disease. Main recommendation is to lose weight as much able. That will be helping him immensely. We discussed about that at length today. Optimal management of diabetes, hypertension, dyslipidemia. Most recent hemoglobin A1c is 6.5%. Last LDL cholesterol 40 mg/dL. Blood pressure seems to be in the normal range. For follow-up, he will call us as needed. Discussion Notes During the consultation, I discussed the findings of the recent CT scan with the patient, reassuring him that the mild coronary artery plaque and minimal stenosis are not currently concerning. I emphasized the importance of continuing statin therapy and making lifestyle changes, including weight loss and increased physical activity, to manage cardiovascular risk. We also reviewed his current management plan for diabetes, hypertension, and hyperlipidemia, highlighting the need for medication adherence and lifestyle modifications. Patient was informed and verbally consented to the use of an ambient scribe for clinic note documentation during this visit. Patient Instructions: - Continue taking all prescribed medications for diabetes, hypertension, and hyperlipidemia. - Monitor blood glucose and blood pressure regularly. - Aim to lose weight through a balanced diet and regular exercise. - Follow up with your healthcare provider as scheduled. Coding Level of Care Code Est Pt Level 4 (64227) Complex EM visit Add On G2211 Diagnoses Atherosclerotic cardiovascular disease I25.10 Diabetes E11.9 HTN (hypertension) I10 Elevated cholesterol E78.00 ANDRÉS (obstructive sleep apnea) G47.33
[2025-03-12 15:23] VITALS: BP 100/70; PULSE 83; BMI 40.6
== END 2025-03-12 15:36 | disposition home or self-care (01) ==
LOC: HO.HCS 14:55
PROVIDERS: PCP Internal Medicine; Visit Provider Internal Medicine
DX: I25.10 Atherosclerotic heart disease of native coronary artery without angina pectoris (principal); E11.9 Type 2 diabetes mellitus without complications; I10 Essential (primary) hypertension; E78.00 Pure hypercholesterolemia, unspecified; G47.33 Obstructive sleep apnea (adult) (pediatric)
CPT/HCPCS: 99214